=== PATIENT | male | born 1950 | race Caucasian/White ===

== ENCOUNTER 2022-09-14 12:00 | Outpatient (OUT) | payer MEDICARE, SELFPAY | END 2022-09-14 12:01 | disposition home or self-care (01) | LOC: PST 09-17 19:23 | PROVIDERS: Visit Provider Surgery | DX: Z01.818 Encounter for other preprocedural examination (principal); R19.5 Other fecal abnormalities; Z86.010 Personal history of colon polyps ==

== ENCOUNTER 2022-09-22 06:50 | Day surgery (SDC) | payer MEDICARE, SELFPAY ==
--- NOTE | 2022-09-22 | OP_ITS ---
OPERATION DATE: ??09/22/2022 PREOPERATIVE DIAGNOSIS:? Positive Cologuard as well as personal history of colon polyps. POSTOPERATIVE DIAGNOSIS:? A 2 mm ascending colon polyp and a 4 mm descending colon polyp, as well as moderate descending and sigmoid diverticulosis. PROCEDURE:? Colonoscopy to cecum with cold forceps polypectomy x1 for ascending colon polyp and cold snare polypectomy x1 for descending colon polyp. SURGEON:? Jose Roberto Perez M.D. ANESTHESIA:? Monitored anesthesia care. ESTIMATED BLOOD LOSS:? Less than 1 mL. INDICATIONS AND CONSENT:? Patient is a 72-year-old male with a recent positive Cologuard, as well as a personal history of colon polyps.? Indications, risks, benefits, alternatives of proceeding with colonoscopy were explained extensively to the patient, including the risks of bleeding, colon perforation or anesthetic complications.? All of his questions were answered.? Informed consent was obtained.? His Plavix was held for the past five days. PROCEDURE:? Patient brought to the operating room, placed in the left lateral decubitus position.? Monitored anesthesia care was provided.? Rectal exam was performed which showed no masses or blood.? The scope was inserted into the anal canal.? Under direct visualization was advanced to the cecum where cecal markings were clearly identified.? Upon withdrawal of the scope, mucosal surfaces were carefully examined. ?Within the ascending colon, there was noted to be a 2 mm diminutive, erythematous polyp that was removed with cold biopsy forceps with good hemostasis.? Within the descending colon, there was noted to be a 4 mm sessile polyp that was removed with cold snare with good hemostasis.? There was moderate to severe descending and sigmoid diverticulosis without inflammatory changes or scarring.? The scope was retroflexed in the anal canal.? There was no significant hemorrhoidal disease.? There were some prominent rectal veins.? Scope was then withdrawn.? Patient tolerated procedure well, was sent to recovery room in good condition. f/u colonoscopy likely in 5 years. CC:? Patient?s family physician KELLI
[2022-09-22 07:07] VITALS: BP 133/80; PULSE 72; RESP 20; TEMP 36.2; O2SAT 95; BMI 33.4
[2022-09-22 07:13] LABS: Glucometer 111 mg/dL (74-106)
[2022-09-22] MEDS: LACTATED RINGER'S SOLUTION 1,000 ML 50 ML IV (07:18)
[2022-09-22 08:24] VITALS: BP 103/50; PULSE 64; RESP 12; TEMP 36.2; O2SAT 94
[2022-09-22 08:39] VITALS: BP 112/63; PULSE 73; RESP 16; O2SAT 97
[2022-09-22 08:54] VITALS: BP 120/67; PULSE 64; RESP 16; O2SAT 95
== END 2022-09-22 08:54 | disposition home or self-care (01) ==
PROVIDERS: Visit Provider Surgery
PROC: (CPT 45380; principal; 2022-09-22 07:55)
DX: D12.2 Benign neoplasm of ascending colon (principal); R19.5 Other fecal abnormalities; Z86.010 Personal history of colon polyps; K57.30 Diverticulosis of large intestine without perforation or abscess without bleeding; Z79.02 Long term (current) use of antithrombotics/antiplatelets; I25.10 Atherosclerotic heart disease of native coronary artery without angina pectoris; I48.91 Unspecified atrial fibrillation; E11.9 Type 2 diabetes mellitus without complications; G47.33 Obstructive sleep apnea (adult) (pediatric); K76.0 Fatty (change of) liver, not elsewhere classified; Z90.49 Acquired absence of other specified parts of digestive tract; Z95.5 Presence of coronary angioplasty implant and graft; Z79.82 Long term (current) use of aspirin; Z79.85 Long-term (current) use of injectable non-insulin antidiabetic drugs; Z87.891 Personal history of nicotine dependence
CPT/HCPCS: 45380; 45385; 36415; 82948; 88305; J2704

== ENCOUNTER 2023-11-18 08:14 | Outpatient (OUT) | payer MEDICARE, SELFPAY ==
--- NOTE | 2023-11-18 | MR_ITS ---
The [place] [id number] Patient Name: SERGIO ROJAS MRN: [id number] date: 1950 Sex: M Assigned Patient Location: MRI Current Patient Location: MRI Accession/Order Number: [id number] Exam Date: 11/18/2023 08:45 Report Date: 11/23/2023 13:00 At the request of: GITA ANTHONY Procedure: MR ankle LT wo con EXAM: MR ankle LT wo con HISTORY: LEFT ANKLE PAIN. COMPARISON: None. TECHNIQUE: MRI images obtained with multiple sequences. MRI of the left ankle without contrast. Sequences obtained by standard department protocol. FINDINGS: Distal Achilles tendinosis and intrasubstance partial-thickness tearing. No full-thickness tear of the Achilles tendon. Plantar fascia is intact. Deltoid ligament is intact. Anterior and posterior syndesmotic ligaments are intact. Anterior talofibular, posterior talofibular, and calcaneofibular ligaments are intact. No abnormal signal of the plantar musculature. Extensor, flexor, and peroneal tendons are intact. No acute fractures. No significant joint degeneration. MR/MR ankle LT wo con IMPRESSION: 1. 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 No full-thickness tear of the Achilles tendon. 2. No acute fracture. 3. No acute ligamentous abnormality. 4. Extensor, flexor, and peroneal tendons are intact. Electronically authenticated by: EUGENIO BIRMINGHAM Date: 11/23/2023 13:00
== END 2023-11-18 08:15 | disposition home or self-care (01) ==
LOC: MRI 08:15
PROVIDERS: Visit Provider Internal Medicine
DX: M25.572 Pain in left ankle and joints of left foot (principal); M76.62 Achilles tendinitis, left leg
CPT/HCPCS: 73721

== ENCOUNTER 2023-12-06 06:37 | Outpatient (OUT) | payer MEDICARE, SELFPAY ==
--- NOTE | 2023-12-06 | XR_ITS ---
The [address] [address] Patient Name: SERGIO ROJAS MRN: [id number] date: 1950 Sex: M Assigned Patient Location: [facility] Current Patient Location: Accession/Order Number: [id number] Exam Date: 12/06/2023 07:44 Report Date: 12/07/2023 06:07 At the request of: KVNG DAVENPORT Procedure: XR ankle LT min 3V PROCEDURE: XR ankle LT min 3V HISTORY: LEFT ANKLE PAIN ; posterior ankle pain; injured several months ago COMPARISON: None. FINDINGS: BONES:Small degenerative disease at 5 at the Achilles tendon insertion and the plantar aponeurosis insertion into the calcaneus. Smooth articular surface and uniform spacing of the ankle joint. SOFT TISSUES:No visible soft tissue swelling. EFFUSION:None visible. OTHER: Negative. XR/XR ankle LT min 3V IMPRESSION: 1. Mild degenerative enthesopathic spurring of the calcaneus. 2. Normal appearance of the ankle joint. Electronically authenticated by: MARLI VALDERRAMA Date: 12/07/2023 06:07
--- OUTSIDE RECORDS SUMMARY | 2023-12-06 06:39 | XMS_ITS | CCD ---
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 Primary Care Unavailable VALENCIA Rich, DR MARCUS Attending Unavailable VALENCIA Rich, DR MARCUS Admitting Unavailable AV ANTHONY JR Primary Care Physician Sergio STEPHENSON Attending AV Sanchez Referring Unavailable Sergio STEPHENSON Attending Unavailable Sergio STEPHENSON Attending Unavailable Sergio STEPHENSON Attending Unavailable Allergies Allergy Classification Reported Allergen(s) Allergy Type Date of Onset Reaction(s) Facility (1 source) No Known Medication Allergies; Translations: [No Known Medication Allergies] Propensity to adverse reactions (disorder) [facility] Repository Medications Current Medications Medication Drug Class(es) Dates Sig (Normalized) Sig (Original) aspirin 81 mg delayed release oral tablet (2 sources) Platelet Aggregation Inhibitor, Nonsteroidal Anti-inflammatory Drug Start: 08-17-2022 take 1 tablet by mouth once daily aspirin 81 mg Oral EC Tab 81 mg = 1 tab(s), Oral, Daily, Refills(s) 0 Start Date: 08/17/22 Status: Ordered clopidogrel 75 mg oral tablet (2 sources) P2Y12 Platelet Inhibitor Start: 08-04-2022 take 1 tablet by mouth once daily Plavix 75 mg Tab 75 mg = 1 tab(s), Oral, Daily, Refills(s) 0 Start Date: 08/04/22 Status: Ordered 0.5 ML dulaglutide 9 MG/ML Auto-Injector [Trulicity] (2 sources) GLP-1 Receptor Agonist Start: 08-04-2022 inject 4.5 mg by subcutaneous injection every week Trulicity Pen 4.5 mg/0.5 mL subcutaneous solution 4.5 mg, SubCutaneous, qWeek, Refills(s) 0 Start Date: 08/04/22 Status: Ordered empagliflozin 25 mg oral tablet (2 sources) Sodium-Glucose Cotransporter 2 Inhibitor Start: 08-04-2022 take 1 tablet by mouth once daily in the morning Jardiance 25 mg oral tablet 25 mg = 1 tab(s), Oral, qAM, Refills(s) 0 Start Date: 08/04/22 Status: Ordered ezetimibe 10 mg oral tablet (2 sources) Dietary Cholesterol Absorption Inhibitor Start: 08-04-2022 take 5 mg by mouth once daily Zetia 10 mg Tab 5 mg = 0.5 tab(s), Oral, Daily, Refills(s) 0 Start Date: 08/04/22 Status: Ordered famotidine 40 mg oral tablet (2 sources) Histamine-2 Receptor Antagonist Start: 08-04-2022 take 1 tablet by mouth once daily at bedtime famotidine 40 mg Tab 40 mg = 1 tab(s), Oral, Once a day (at bedtime), Refills(s) 0 Start Date: 08/04/22 Status: Ordered hydroxychloroquine sulfate 200 mg oral tablet (2 sources) Antimalarial, Antirheumatic Agent Start: 08-04-2022 take 200 mg by mouth twice daily Plaquenil 200 mg, Oral, BID, Refills(s) 0 Start Date: 08/04/22 Status: Ordered rosuvastatin calcium 20 mg oral tablet (2 sources) HMG-CoA Reductase Inhibitor Start: 08-04-2022 take 1 tablet by mouth once daily at bedtime rosuvastatin 20 mg Tab 20 mg = 1 tab(s), Oral, Once a day (at bedtime), Refills(s) 0 Start Date: 08/04/22 Status: Ordered zolpidem tartrate 5 mg oral tablet (2 sources) gamma-Aminobutyric Acid-ergic Agonist Start: 08-04-2022 take 1 tablet by mouth once daily at bedtime Ambien 5 mg Tab 5 mg = 1 tab(s), Oral, Once a day (at bedtime), Refills(s) 0 Start Date: 08/04/22 Status: Ordered Problems Problem Classification Problem Date Documented Da te Episodic/Chronic Cardiac dysrhythmias (2 sources) Atrial fibrillation 08-04-2022 Chronic Coronary atherosclerosis and other heart disease (2 sources) Coronary arteriosclerosis 08-04-2022 Chronic Diabetes mellitus without complication (2 sources) Diabetes mellitus 08-04-2022 Chronic E Codes: Cut/pierceb (1 source) Contact with workbench tool, initial encounter; Translations: [CONTACT W/WORKBENCH TOOL INIT ENC] Onset: 3 Episodic Open wounds of extremities (4 sources) Laceration without foreign body of right index finger without damage to nail, initial encounter; Translations: [LAC W/O FB RT IF W/O DMG NAIL INIT] Onset: 3 Episodic Other aftercare (1 source) longterm (current) use of aspirin; Translations: [MCFP CURRENT USE OF ASPIRIN] Onset: 3 Episodic Other aftercare (1 source) Other longterm (current) drug therapy; Translations: [OTH HVAC/R SERVICE TECHNICIAN CURRENT DRUG THERAPY] Onset: 3 Episodic Other aftercare (1 source) longterm (current) use of antithrombotics/antipl atelets; Translations: [MCFP ANTITHROMBOT/ANTIPLATL ETS] Onset: 3 Episodic Other and unspecified benign neoplasm (5 sources) History of polyp of colon; Translations: [Personal history of colonic polyps] Onset: 3 Episodic Other and unspecified benign neoplasm (2 sources) Benign neoplasm of descending colon; Translations: [Benign neoplasm of descending colon] Onset: 3 Episodic Other and unspecified benign neoplasm (2 sources) Benign neoplasm of ascending colon; Translations: [Benign neoplasm of ascending colon] Onset: 3 Episodic Other gastrointestinal disorders (1 source) Abnormal feces; Translations: [Other fecal abnormalities] Onset: 3 Episodic Other nutritional; endocrine; and metabolic disorders (1 source) Obese class I; Translations: [Body mass index (BMI) 34.0-34.9, adult] Onset: 3 Chronic Other nutritional; endocrine; and metabolic disorders (2 sources) Body mass index 30+ - obesity 08-17-2022 Chronic Other nutritional; endocrine; and metabolic disorders (2 sources) Obesity 08-17-2022 Chronic Other screening for suspected conditions (not mental disorders or infectious disease) (4 sources) Stool DNA-based colorectal cancer screening positive; Translations: [Decreased testosterone level ] 08-04-2022 Episodic Residual codes; unclassified (2 sources) Obstructive sleep apnea syndrome 08-04-2022 Chronic Residual codes; unclassified (2 sources) Insomnia 08-04-2022 Episodic Screening and history of mental health and substance abuse codes (1 source) Personal history of nicotine dependence; Translations: [PERSONAL HISTORY OF NICOTINE DEPEND] Onset: 3 Episodic Unclassified (1 source) HVAC/R SERVICE TECHNICIAN INJECT NONINSULN ANTIDIAB; Translations: [MCFP INJECT NONINSULN ANTIDIAB] Onset: 3 Unclassified (2 sources) Non-alcoholic fatty liver disease 08-04-2022 Results Test Name Value Interpretation Reference Range Facility Ambulatory Visit Summaryon 0 10-13-2022 Ambulatory Visit Summary SERGIO ROJAS :1950 Visit Date:10/13/2022 Ambulatory Visit Instructions Your Diagnosis Benign neoplasm of ascending colon Benign neoplasm of descending colon Your Care Team Attending Physician - Sergio STEPHENSON MD Primary Care Physician - AV ANTHONY JR, DO This Is Your Medications List Contact prescribing physician if questions or concerns aspirin (aspirin 81 mg Oral EC Tab) clopidogrel (Plavix 75 mg Tab) dulaglutide (Trulicity Pen 4.5 mg/0.5 mL subcutaneous solution) empagliflozin (Jardiance 25 mg oral tablet) ezetimibe (Zetia 10 mg Tab) famotidine (famotidine 40 mg Tab) hydroxychloroquine (Plaquenil) rosuvastatin (rosuvastatin 20 mg Tab) zolpidem (Ambien 5 mg Tab) Procedures Performed Colonoscopy (09/22/2022), Colonoscopy (04/15/2011), Colonoscopy (2002), Cholecystectomy, History of cervical spine surgery, Placement of stent in cardiac conduit, TURP - Transurethral resection of prostate, Uvulopalatoplasty. Medications What How Much When Instructions Unchanged aspirin (aspirin 81 mg Oral EC Tab) 1 Tablets By Mouth Every day Contact prescribing physician if questions or concerns Unchanged clopidogrel (Plavix 75 mg Tab) 1 Tablets By Mouth Every day Contact prescribing physician if questions or concerns Unchanged dulaglutide (Trulicity Pen 4.5 mg/ 0.5 mL subcutaneous solution) 4.5 Milligram Subcutaneous Every week Contact prescribing physician if questions or concerns Unchanged empagliflozin (Jardiance 25 mg oral tablet) 1 Tablets By Mouth Once a day (in the morning) Contact prescribing physician if questions or concerns Unchanged ezetimibe (Zetia 10 mg Tab) 0.5 Tablets By Mouth Every day Contact prescribing physician if questions or concerns Unchanged famotidine (famotidine 40 mg Tab) 1 Tablets By Mouth Once a day (at bedtime) Contact prescribing physician if questions or concerns Unchanged hydroxychloroquine (Plaquenil) 200 Milligram By Mouth 2 times a day Contact prescribing physician if questions or concerns Unchanged rosuvastatin (rosuvastatin 20 mg Tab) 1 Tablets By Mouth Once a day (at bedtime) Contact prescribing physician if questions or concerns Unchanged zolpidem (Ambien 5 mg Tab) 1 Tablets By Mouth Once a day (at bedtime) Contact prescribing physician if questions or concerns Allergies No Known Allergies No Known Medication Allergies Problems Ongoing - Any problem that you are currently receiving treatment for. Atrial fibrillation Benign neoplasm of descending colon BMI 34.0-34.9,adult CAD (coronary artery disease) Diabetes History of colonic polyps Insomnia Low testosterone NAFLD (nonalcoholic fatty liver disease) Obesity MOE (obstructive sleep apnea) Personal history of colonic polyps Positive colorectal cancer screening using Cologuard test Tubular adenoma of colon [facility] Ambulatory Visit Summary SERGIO ROJAS :1950 Visit Date:10/13/2022 Ambulatory Visit Instructions Your Care Team Attending Physician - Sergio STEPHENSON MD Primary Care Physician - AV ANTHONY JR, DO This Is Your Medications List aspirin (aspirin 81 mg Oral EC Tab) clopidogrel (Plavix 75 mg Tab) dulaglutide (Trulicity Pen 4.5 mg/0.5 mL subcutaneous solution) empagliflozin (Jardiance 25 mg oral tablet) ezetimibe (Zetia 10 mg Tab) famotidine (famotidine 40 mg Tab) hydroxychloroquine (Plaquenil) rosuvastatin (rosuvastatin 20 mg Tab) zolpidem (Ambien 5 mg Tab) Procedures Performed Colonoscopy (09/22/2022), Colonoscopy (04/15/2011), Colonoscopy (2002), Cholecystectomy, History of cervical spine surgery, Placement of stent in cardiac conduit, TURP - Transurethral resection of prostate, Uvulopalatoplasty. Medications What How Much When Instructions Unchanged aspirin (aspirin 81 mg Oral EC Tab) 1 Tablets By Mouth Every day Unchanged clopidogrel (Plavix 75 mg Tab) 1 Tablets By Mouth Every day Unchanged dulaglutide (Trulicity Pen 4.5 mg/ 0.5 mL subcutaneous solution) 4.5 Milligram Subcutaneous Every week Unchanged empagliflozin (Jardiance 25 mg oral tablet) 1 Tablets By Mouth Once a day (in the morning) Unchanged ezetimibe (Zetia 10 mg Tab) 0.5 Tablets By Mouth Every day Unchanged famotidine (famotidine 40 mg Tab) 1 Tablets By Mouth Once a day (at bedtime) Unchanged hydroxychloroquine (Plaquenil) 200 Milligram By Mouth 2 times a day Unchanged rosuvastatin (rosuvastatin 20 mg Tab) 1 Tablets By Mouth Once a day (at bedtime) Unchanged zolpidem (Ambien 5 mg Tab) 1 Tablets By Mouth Once a day (at bedtime) Allergies No Known Allergies No Known Medication Allergies Problems Ongoing - Any problem that you are currently receiving treatment for. Atrial fibrillation BMI 34.0-34.9,adult CAD (coronary artery disease) Diabetes History of colonic polyps Insomnia Low testosterone NAFLD (nonalcoholic fatty liver disease) Obesity MOE (obstructive sleep apnea) Personal history of colonic polyps Positive colorectal cancer screening using Cologuard test Normal [facility] Gen Surg Phone Visit- Telehe marbella 10-13-2022 Gen Surg Phone Visit- Telehealth Chief Complaint colonoscopy follow up HPI Staff 21 day post operative follow up post colonoscopy with ascending polypectomies. History of Present Illness s/p colonoscopy with polypectomy x2 for small tubular adenomas in ascending and descending colon; doing well, denies abd pain or blood in stools. Review of Systems ROS - Provider Constitutional: no fever, no sweats, no weight loss. Eyes: no glasses, no blurred vision, no visual loss. ENMT: no dentures, no hoarseness, no swallowing difficulties, no hearing loss, no ear infection(s), no nose bleeds. Cardiovascular: normal blood pressure, no chest pain, regular heartbeat, no heart murmur. Respiratory: no shortness of breath, no cough, no asthma, no wheezing. Gastrointestinal: no nausea, no vomiting, no diarrhea, no constipation, no blood in stool, no change in bowel habits, no abdominal pain, no hepatitis. Genitourinary: no kidney stones, no urine infection, no dysuria. Musculoskeletal: no pain, no weakness. Skin: no changing moles, no rash, no skin lumps. Neurologic: no seizures, no epilepsy, no headache. Psychiatric: no emotional or psychiatric problem. Heme/Lymph: no bleeding problems, no anemia, no blood clots, no transfusions. Allergy/Immunologic: no swollen lymph nodes/glands, no IV drug abuse. Other: Additional ROS info: Except as noted in the above Review of Systems and in the History of Present Illness, all other systems have been reviewed and are negative or noncontributory. Assessment/Plan 1. Benign neoplasm of ascending colon (D12.2: Benign neoplasm of ascending colon) plan surveillance colonoscopy in 5 years, call sooner if problems/questions. 2. Benign neoplasm of descending colon (D12.4: Benign neoplasm of descending colon) see # 1 Follow-up No qualifying data available Problem List/Past Medical History Ongoing Atrial fibrillation Benign neoplasm of descending colon BMI 34.0-34.9,adult CAD (coronary artery disease) Diabetes History of colonic polyps Insomnia Low testosterone NAFLD (nonalcoholic fatty liver disease) Obesity MOE (obstructive sleep apnea) Personal history of colonic polyps Positive colorectal cancer screening using Cologuard test Tubular adenoma of colon Historical No qualifying data Procedure/Surgical History Colonoscopy (09/22/2022), Colonoscopy (04/15/2011), Colonoscopy (2002), Cholecystectomy, History of cervical spine surgery, Placement of stent in cardiac conduit, TURP - Transurethral resection of prostate, Uvulopalatoplasty. Medications Ambien 5 mg Tab, 5 mg= 1 tab(s), Oral, Once a day (at bedtime) aspirin 81 mg Oral EC Tab, 81 mg= 1 tab(s), Oral, Daily famotidine 40 mg Tab, 40 mg= 1 tab(s), Oral, Once a day (at bedtime) Jardiance 25 mg oral tablet, 25 mg= 1 tab(s), Oral, qAM Plaquenil, 200 mg, Oral, BID Plavix 75 mg Tab, 75 mg= 1 tab(s), Oral, Daily rosuvastatin 20 mg Tab, 20 mg= 1 tab(s), Oral, Once a day (at bedtime) Trulicity Pen 4.5 mg/0.5 mL subcutaneous solution, 4.5 mg, SubCutaneous, qWeek Zetia 10 mg Tab, 5 mg= 0.5 tab(s), Oral, Daily Allergies No Known Allergies No Known Medication Allergies Social History Alcohol - Denies Alcohol Use, 08/17/2022 Substance Abuse - Denies Substance Abuse, 08/17/2022 Tobacco Former smoker, quit more than 30 days ago Tobacco Use:. Never Smokeless Tobacco Use:. Cigarettes, 1 per day. Started age 15.0 Years. Stopped age 45 Years., 08/17/2022 Family History Acute myocardial infarction: Father. Dementia: Mother. Esophageal cancer: Brother. Immunizations Vaccine Date Status SARS-CoV-2 (COVID-19) mRNA-1273 vaccine 10/08/2021 Recorded SARS-CoV-2 (COVID-19) mRNA-1273 vaccine 12/28/2020 Recorded SARS-CoV-2 (COVID-19) mRNA-1273 vaccine 05/21/2020 Recorded SARS-CoV-2 (COVID-19) mRNA-1273 vaccine 04/24/2020 Recorded Normal [facility] Comment on above: Result Comment: Elec tronically Signed By: SACHIN REGAN, Sergio Seymour\Date and Time Signed: 10/13/22 14:55 EDT Reminderson 10-13-2022 Reminders - From: Aparna Mcgee LPN To: N - Clinical; Sent: 10/13/2022 14:52:17 EDT Show up: 08/24/2027 07:00:00 EDT Subject: colonoscopy recall Due Date/Time: 09/23/2027 07:00:00 EDT Reminder/Recall Patient due for surveillance colonoscopy 09/23/2027. Normal [facility] Pathology Noteon 09-28-2022 Pathology Note [id number] D:127 Normal [facility] Outside Colonoscopyon 2022 Outside Colonoscopy [id number] D:127 [facility] Lab Reportson 09-22-2022 Lab Reports [id number]#1.00C D:127 [facility] Pre-Certification Formon Pre-Certification Form [id number] :127 [facility] Consent for Procedure/Surger yon 08-18-2022 Consent for Procedure/Surgery [id number] D:127 [facility] Ambulatory Visit Summaryon 0 08-17-2022 Ambulatory Visit Summary SERGIO ROJAS :1950 Visit Date:08/17/2022 Ambulatory Visit Instructions Your Diagnosis Positive colorectal cancer screening using Cologuard test Personal history of colonic polyps BMI 34.0-34.9,adult Your Care Team Attending Physician - SACHIN REGAN, Sergio Perry Primary Care Physician - AV ANTHONY JR, DO This Is Your Medications List Contact prescribing physician if questions or concerns aspirin (aspirin 81 mg Oral EC Tab) clopidogrel (Plavix 75 mg Tab) dulaglutide (Trulicity Pen 4.5 mg/0.5 mL subcutaneous solution) empagliflozin (Jardiance 25 mg oral tablet) ezetimibe (Zetia 10 mg Tab) famotidine (famotidine 40 mg Tab) hydroxychloroquine (Plaquenil) rosuvastatin (rosuvastatin 20 mg Tab) zolpidem (Ambien 5 mg Tab) Procedures Performed Colonoscopy (04/15/2011), Colonoscopy (2002), Cholecystectomy, History of cervical spine surgery, Placement of stent in cardiac conduit, TURP - Transurethral resection of prostate, Uvulopalatoplasty. Discharge Vitals Heart Rate (Peripheral) 70 Respiratory Rate 16 Blood Pressure 130/90 Height 175.2 cm Height 69 in Weight 105.6 kg Weight 232.32 lb BMI 34.4 Medications What How Much When Instructions Unchanged aspirin (aspirin 81 mg Oral EC Tab) 1 Tablets By Mouth Every day Contact prescribing physician if questions or concerns Unchanged clopidogrel (Plavix 75 mg Tab) 1 Tablets By Mouth Every day Contact prescribing physician if questions or concerns Unchanged dulaglutide (Trulicity Pen 4.5 mg/ 0.5 mL subcutaneous solution) 4.5 Milligram Subcutaneous Every week Contact prescribing physician if questions or concerns Unchanged empagliflozin (Jardiance 25 mg oral tablet) 1 Tablets By Mouth Once a day (in the morning) Contact prescribing physician if questions or concerns Unchanged ezetimibe (Zetia 10 mg Tab) 0.5 Tablets By Mouth Every day Contact prescribing physician if questions or concerns Unchanged famotidine (famotidine 40 mg Tab) 1 Tablets By Mouth Once a day (at bedtime) Contact prescribing physician if questions or concerns Unchanged hydroxychloroquine (Plaquenil) 200 Milligram By Mouth 2 times a day Contact prescribing physician if questions or concerns Unchanged rosuvastatin (rosuvastatin 20 mg Tab) 1 Tablets By Mouth Once a day (at bedtime) Contact prescribing physician if questions or concerns Unchanged zolpidem (Ambien 5 mg Tab) 1 Tablets By Mouth Once a day (at bedtime) Contact prescribing physician if questions or concerns Allergies No Known Allergies No Known Medication Allergies Problems Ongoing - Any problem that you are currently receiving treatment for. Atrial fibrillation BMI 34.0-34.9,adult CAD (coronary artery disease) Diabetes History of colonic polyps Insomnia Low testosterone NAFLD (nonalcoholic fatty liver disease) Obesity MOE (obstructive sleep apnea) Personal history of colonic polyps Positive colorectal cancer screening using Cologuard test Normal [facility] Physician Referralon 023 Physician Referral [id number] D:127 Normal [facility] Basic Metabolic Panelon 09-28 Calcium mass conc 8.1 mg/dL Low 8.4-10.2 [facility] Comment on above: Performed By: #### C BCWOD, PT, PTT, EDCTNI, CHEM8, LIPASE, CMETADD ####Unless otherwise noted, all testing performed by [place] [address] [address], [place] [id number]: [id number] Director: Christ Farris M.D. Chloride molar conc 109 mmol/L High 98-108 [facility] Comment on above: Performed By: #### C BCWOD, PT, PTT, EDCTNI, CHEM8, LIPASE, CMETADD ####Unless otherwise noted, all testing performed by [address] [phone]: [id number] Director: Christ Farris M.D. CO2 molar conc 25 mmol/L Normal 21-32 [facility] Comment on above: Performed By: #### C BCWOD, PT, PTT, EDCTNI, CHEM8, LIPASE, CMETADD ####Unless otherwise noted, all testing performed by [address] [phone]: [id number] Director: Christ Farris M.D. Creatinine mass conc 0.81 mg/dL Normal 0.80-1.30 [facility] Comment on above: Performed By: #### C BCWOD, PT, PTT, EDCTNI, CHEM8, LIPASE, CMETADD ####Unless otherwise noted, all testing performed by [address] [phone]: [id number] Director: Christ Farris M.D. GFR/1.73 sq M predicted among blacks MDRD vol rate/area (S/P/Bld) mL/min/{1.73_m2} Normal [facility] Comment on above: Result Comment: Afri can Colombian GFR Calc Performed By: #### C BCWOD, PT, PTT, EDCTNI, CHEM8, LIPASE, CMETADD ####Unless otherwise noted, all testing performed by [address] [phone]: [id number] Director: Christ Farris M.D. GFR/1.73 sq M predicted among non-blacks MDRD vol rate/area (S/P/Bld) mL/min/{1.73_m2} Normal [facility] Comment on above: Result Comment: Non- GFR CalceGFR is an estimated Glomerular Filtration Rate based on the valueof the patient's serum creatinine. In outpatients, eGFR should be usedas a helpful tool in screening for CKD. In inpatients or patients withacute renal failure, eGFR represents the GFR at the moment of the drawand should be used with caution. Performed By: #### C BCWOD, PT, PTT, EDCTNI, CHEM8, LIPASE, CMETADD ####Unless otherwise noted, all testing performed by [address] [phone]: [id number] Director: Christ Farris M.D. Glucose mass conc 137 mg/dL High 70-99 [facility] Comment on above: Result Comment: This test result might be falsely depressed or falsely elevated onsamples drawn from patients taking Sulfasalazine and Sulfapyridine.Venipuncture should occur prior to taking either of these drugs. Performed By: #### C BCWOD, PT, PTT, EDCTNI, CHEM8, LIPASE, CMETADD ####Unless otherwise noted, all testing performed by [address] [phone]: [id number] Director: Christ Farris M.D. Potassium molar conc 4.1 mmol/L Normal 3.5-5.1 [facility] Comment on above: Performed By: #### C BCWOD, PT, PTT, EDCTNI, CHEM8, LIPASE, CMETADD ####Unless otherwise noted, all testing performed by [address] [phone]: [id number] Director: Christ Farris M.D. Sodium molar conc 140 mmol/L Normal 135-145 [facility] Comment on above: Performed By: #### C BCWOD, PT, PTT, EDCTNI, CHEM8, LIPASE, CMETADD ####Unless otherwise noted, all testing performed by [address] [phone]: [id number] Director: Christ Farris M.D. Urea nitrogen mass conc 14 mg/dL Normal 8-25 [facility] Comment on above: Performed By: #### C BCWOD, PT, PTT, EDCTNI, CHEM8, LIPASE, CMETADD ####Unless otherwise noted, all testing performed by [address] [phone]: [id number] Director: Christ Farris M.D. CBC with Diffon 10-10-2017 Basophils Auto #/vol (Bld) 0.0 K/mcL Normal 0-0.2 [facility] Comment on above: Performed By: #### C BCWOD, PT, PTT, EDCTNI, CHEM8, LIPASE, CMETADD ####Unless otherwise noted, all testing performed by [address] [phone]: [id number] Director: Christ Farris M.D. Basophils/100 WBC Auto (Bld) 0.4 % Normal [facility] Comment on above: Performed By: #### C BCWOD, PT, PTT, EDCTNI, CHEM8, LIPASE, CMETADD ####Unless otherwise noted, all testing performed by [address], [place] [phone]: [id number] Director: Christ Farris M.D. Eosinophils Auto #/vol (Bld) 0.1 K/mcL Normal 0-0.5 [facility] Comment on above: Performed By: #### C BCWOD, PT, PTT, EDCTNI, CHEM8, LIPASE, CMETADD ####Unless otherwise noted, all testing performed by [address] [phone]: [id number] Director: Christ Farris M.D. Eosinophils/100 WBC Auto (Bld) 0.8 % Normal [facility] Comment on above: Performed By: #### C BCWOD, PT, PTT, EDCTNI, CHEM8, LIPASE, CMETADD ####Unless otherwise noted, all testing performed by [address] [phone]: [id number] Director: Christ Farris M.D. Erythrocyte distribution width Auto Ratio (RBC) 15.2 % High 10-14.3 [facility] Comment on above: Performed By: #### C BCWOD, PT, PTT, EDCTNI, CHEM8, LIPASE, CMETADD ####Unless otherwise noted, all testing performed by [address] [phone]: [id number] Director: Christ Farris M.D. Hematocrit Auto Volume Fraction (Bld) 37.9 % Normal 37.9-49.2 [facility] Comment on above: Performed By: #### C BCWOD, PT, PTT, EDCTNI, CHEM8, LIPASE, CMETADD ####Unless otherwise noted, all testing performed by [address] [phone]: [id number] Director: Christ Farris M.D. Hemoglobin mass conc (Bld) 12.7 g/dL Low 12.9-16.9 [facility] Comment on above: Performed By: #### C BCWOD, PT, PTT, EDCTNI, CHEM8, LIPASE, CMETADD ####Unless otherwise noted, all testing performed by [address] [phone]: [id number] Director: Christ Farris M.D. Lymphocytes Auto #/vol (Bld) 1.6 K/mcL Normal 0.9-3.6 [facility] Comment on above: Performed By: #### C BCWOD, PT, PTT, EDCTNI, CHEM8, LIPASE, CMETADD ####Unless otherwise noted, all testing performed by [address] [phone]: [id number] Director: Christ Farris M.D. Lymphocytes/100 WBC Auto (Bld) 12.8 % Normal [facility] Comment on above: Performed By: #### C BCWOD, PT, PTT, EDCTNI, CHEM8, LIPASE, CMETADD ####Unless otherwise noted, all testing performed by [address] [phone]: [id number] Director: Christ Farris M.D. MCH Auto Entitic mass (RBC) 26.1 pg Low 27.7-34.6 [facility] Comment on above: Performed By: #### C BCWOD, PT, PTT, EDCTNI, CHEM8, LIPASE, CMETADD ####Unless otherwise noted, all testing performed by [address] [phone]: [id number] Director: Christ Farris M.D. [facility] mass conc (RBC) 33.5 g/dL Normal 32.9-35.5 [facility] Comment on above: Performed By: #### C BCWOD, PT, PTT, EDCTNI, CHEM8, LIPASE, CMETADD ####Unless otherwise noted, all testing performed by [address] [phone]: [id number] Director: Christ Farris M.D. MCV Auto Entitic volume (RBC) 77.9 fL Low 82.8-99.3 [facility] Comment on above: Performed By: #### C BCWOD, PT, PTT, EDCTNI, CHEM8, LIPASE, CMETADD ####Unless otherwise noted, all testing performed by [address] [phone]: [id number] Director: Christ Farris M.D. Monocytes Auto #/vol (Bld) 1.1 K/mcL High 0.2-0.6 [facility] Comment on above: Performed By: #### C BCWOD, PT, PTT, EDCTNI, CHEM8, LIPASE, CMETADD ####Unless otherwise noted, all testing performed by [address] [phone]: [id number] Director: Christ Farris M.D. Monocytes/100 WBC Auto (Bld) 8.8 % Normal [facility] Comment on above: Performed By: #### C BCWOD, PT, PTT, EDCTNI, CHEM8, LIPASE, CMETADD ####Unless otherwise noted, all testing performed by [address] [phone]: [id number] Director: Christ Farris M.D. Neutrophils Auto #/vol (Bld) 9.6 K/mcL High 1.4-6.8 [facility] Comment on above: Performed By: #### C BCWOD, PT, PTT, EDCTNI, CHEM8, LIPASE, CMETADD ####Unless otherwise noted, all testing performed by [address] [phone]: [id number] Director: Christ Farris M.D. Platelet mean volume Auto Entitic volume (Bld) 8.1 fL Normal 6.6-10.8 [facility] Comment on above: Performed By: #### C BCWOD, PT, PTT, EDCTNI, CHEM8, LIPASE, CMETADD ####Unless otherwise noted, all testing performed by [address] [phone]: [id number] Director: Christ Farris M.D. Platelets Auto #/vol (Bld) 280 K/mcL Normal 139-354 [facility] Comment on above: Performed By: #### C BCWOD, PT, PTT, EDCTNI, CHEM8, LIPASE, CMETADD ####Unless otherwise noted, all testing performed by [address] [phone]: [id number] Director: Christ Farris M.D. RBC Auto #/vol (Bld) 4.87 M/mcL Normal 4.0-5.5 [facility] Comment on above: Performed By: #### C BCWOD, PT, PTT, EDCTNI, CHEM8, LIPASE, CMETADD ####Unless otherwise noted, all testing performed by [address] [phone]: [id number] Director: Christ Farris M.D. Segmented Neut % 77.2 % Normal [facility] Comment on above: Performed By: #### C BCWOD, PT, PTT, EDCTNI, CHEM8, LIPASE, CMETADD ####Unless otherwise noted, all testing performed by [place] [phone]: [id number] Director: Christ Farris M.D. WBC Auto #/vol (Bld) 12.4 K/mcL High 3.6-10.4 [facility] Comment on above: Performed By: #### C BCWOD, PT, PTT, EDCTNI, CHEM8, LIPASE, CMETADD ####Unless otherwise noted, all testing performed by [address] [phone]: [id number] Director: Christ Farris M.D. Cardiac Troponin-Ion 018 Troponin I.cardiac mass conc No Biomarker evidence of myocardial injury within the past 14 hours. Normal [facility] Comment on above: Performed By: #### C BCWOD, PT, PTT, EDCTNI, CHEM8, LIPASE, CMETADD ####Unless otherwise noted, all testing performed by [address] [phone]: [id number] Director: Christ Farris M.D. Troponin I.cardiac mass conc ng/mL Normal < 45.0 [facility] Comment on above: Result Comment: Elev ation of troponin indicates some degree of myocardial necrosis butunless there is a significant rise and/or fall (if elevated) identified,it unlikely that an acute event has taken placeSamples from patients routinely receiving high dose biotin therapy(100-300 mg/day) may show falsely decreased results. Please correlateclinically. Performed By: #### C BCWOD, PT, PTT, EDCTNI, CHEM8, LIPASE, CMETADD ####Unless otherwise noted, all testing performed by [address] [phone]: [id number] Director: Christ Farris M.D. Glucose, POCon 10-10-2017 Glucose mass conc 99 mg/dL Normal 80-115 [facility] Comment on above: Performed By: #### C BCWOD, PT, PTT, EDCTNI, CHEM8, LIPASE, CMETADD ####Unless otherwise noted, all testing performed by [address] [phone]: [id number] Director: Christ Farris M.D. Glucose mass conc 104 mg/dL Normal 80-115 [facility] Comment on above: Performed By: #### C BCWOD, PT, PTT, EDCTNI, CHEM8, LIPASE, CMETADD ####Unless otherwise noted, all testing performed by [address] [phone]: [id number] Director: Christ Farris M.D. Magnesiumon 10-10-2017 Magnesium mass conc 1.8 mg/dL Normal 1.6-2.4 [facility] Comment on above: Performed By: #### C BCWOD, PT, PTT, EDCTNI, CHEM8, LIPASE, CMETADD ####Unless otherwise noted, all testing performed by [address] [phone]: [id number] Director: Christ Farris M.D. Basic Metabolic Panelon 09-28 Calcium mass conc 8.5 mg/dL Normal 8.4-10.2 [facility] Comment on above: Performed By: #### C BCWOD, PT, PTT, EDCTNI, CHEM8, LIPASE, CMETADD ####Unless otherwise noted, all testing performed by [address] [phone]: [id number] Director: Christ Farris M.D. Chloride molar conc 105 mmol/L Normal 98-108 [facility] Comment on above: Performed By: #### C BCWOD, PT, PTT, EDCTNI, CHEM8, LIPASE, CMETADD ####Unless otherwise noted, all testing performed by [address] [phone]: [id number] Director: Christ Farris M.D. CO2 molar conc 27 mmol/L Normal 21-32 [facility] Comment on above: Performed By: #### C BCWOD, PT, PTT, EDCTNI, CHEM8, LIPASE, CMETADD ####Unless otherwise noted, all testing performed by [address] [phone]: [id number] Director: Christ Farris M.D. Creatinine mass conc 1.04 mg/dL Normal 0.80-1.30 [facility] Comment on above: Performed By: #### C BCWOD, PT, PTT, EDCTNI, CHEM8, LIPASE, CMETADD ####Unless otherwise noted, all testing performed by [address] [phone]: [id number] Director: Christ Farris M.D. GFR/1.73 sq M predicted among blacks MDRD vol rate/area (S/P/Bld) mL/min/{1.73_m2} Normal [facility] Comment on above: Result Comment: Afri can Colombian GFR Calc Performed By: #### C BCWOD, PT, PTT, EDCTNI, CHEM8, LIPASE, CMETADD ####Unless otherwise noted, all testing performed by [address] [phone]: [id number] Director: Christ Farris M.D. GFR/1.73 sq M predicted among non-blacks MDRD vol rate/area (S/P/Bld) mL/min/{1.73_m2} Normal [facility] Comment on above: Result Comment: Non- GFR CalceGFR is an estimated Glomerular Filtration Rate based on the valueof the patient's serum creatinine. In outpatients, eGFR should be usedas a helpful tool in screening for CKD. In inpatients or patients withacute renal failure, eGFR represents the GFR at the moment of the drawand should be used with caution. Performed By: #### C BCWOD, PT, PTT, EDCTNI, CHEM8, LIPASE, CMETADD ####Unless otherwise noted, all testing performed by [address] [phone]: [id number] Director: Christ Farris M.D. Glucose mass conc 172 mg/dL High 70-99 [facility] Comment on above: Result Comment: This test result might be falsely depressed or falsely elevated onsamples drawn from patients taking Sulfasalazine and Sulfapyridine.Venipuncture should occur prior to taking either of these drugs. Performed By: #### C BCWOD, PT, PTT, EDCTNI, CHEM8, LIPASE, CMETADD ####Unless otherwise noted, all testing performed by [address] [phone]: [id number] Director: Christ Farris M.D. Potassium molar conc 3.8 mmol/L Normal 3.5-5.1 [facility] Comment on above: Performed By: #### C BCWOD, PT, PTT, EDCTNI, CHEM8, LIPASE, CMETADD ####Unless otherwise noted, all testing performed by [address] [phone]: [id number] Director: Christ Farris M.D. Sodium molar conc 140 mmol/L Normal 135-145 [facility] Comment on above: Performed By: #### C BCWOD, PT, PTT, EDCTNI, CHEM8, LIPASE, CMETADD ####Unless otherwise noted, all testing performed by [address] [phone]: [id number] Director: Christ Farris M.D. Urea nitrogen mass conc 11 mg/dL Normal 8-25 [facility] Comment on above: Performed By: #### C BCWOD, PT, PTT, EDCTNI, CHEM8, LIPASE, CMETADD ####Unless otherwise noted, all testing performed by [address] [phone]: [id number] Director: Christ Farris M.D. CBC w/o Diffon 10-09-2017 Erythrocyte distribution width Auto Ratio (RBC) 15.2 % High 10-14.3 [facility] Comment on above: Performed By: #### C BCWOD, PT, PTT, EDCTNI, CHEM8, LIPASE, CMETADD ####Unless otherwise noted, all testing performed by [address] [phone]: [id number] Director: Christ Farris M.D. Hematocrit Auto Volume Fraction (Bld) 42.6 % Normal 37.9-49.2 [facility] Comment on above: Performed By: #### C BCWOD, PT, PTT, EDCTNI, CHEM8, LIPASE, CMETADD ####Unless otherwise noted, all testing performed by [address] [phone]: [id number] Director: Christ Farris M.D. Hemoglobin mass conc (Bld) 14.1 g/dL Normal 12.9-16.9 [facility] Comment on above: Performed By: #### C BCWOD, PT, PTT, EDCTNI, CHEM8, LIPASE, CMETADD ####Unless otherwise noted, all testing performed by [address] [phone]: [id number] Director: Christ Farris M.D. MCH Auto Entitic mass (RBC) 25.8 pg Low 27.7-34.6 [facility] Comment on above: Performed By: #### C BCWOD, PT, PTT, EDCTNI, CHEM8, LIPASE, CMETADD ####Unless otherwise noted, all testing performed by [address] [phone]: [id number] Director: Christ Farris M.D. MCHC Auto mass conc (RBC) 33.1 g/dL Normal 32.9-35.5 [facility] Comment on above: Performed By: #### C BCWOD, PT, PTT, EDCTNI, CHEM8, LIPASE, CMETADD ####Unless otherwise noted, all testing performed by [address] [phone]: [id number] Director: Christ Farris M.D. MCV Auto Entitic volume (RBC) 77.9 fL Low 82.8-99.3 [facility] Comment on above: Performed By: #### C BCWOD, PT, PTT, EDCTNI, CHEM8, LIPASE, CMETADD ####Unless otherwise noted, all testing performed by [place] [phone]: [id number] Director: Christ Farris M.D. Platelet mean volume Auto Entitic volume (Bld) 7.7 fL Normal 6.6-10.8 [facility] Comment on above: Performed By: #### C BCWOD, PT, PTT, EDCTNI, CHEM8, LIPASE, CMETADD ####Unless otherwise noted, all testing performed by [address] [phone]: [id number] Director: Christ Farris M.D. Platelets Auto #/vol (Bld) 319 K/mcL Normal 139-354 [facility] Comment on above: Performed By: #### C BCWOD, PT, PTT, EDCTNI, CHEM8, LIPASE, CMETADD ####Unless otherwise noted, all testing performed by [place] [phone]: [id number] Director: Christ Farris M.D. RBC Auto #/vol (Bld) 5.48 M/mcL Normal 4.0-5.5 [facility] Comment on above: Performed By: #### C BCWOD, PT, PTT, EDCTNI, CHEM8, LIPASE, CMETADD ####Unless otherwise noted, all testing performed by [address] [phone]: [id number] Director: Christ Farris M.D. WBC Auto #/vol (Bld) 13.6 K/mcL High 3.6-10.4 [facility] Comment on above: Performed By: #### C BCWOD, PT, PTT, EDCTNI, CHEM8, LIPASE, CMETADD ####Unless otherwise noted, all testing performed by [address] [phone]: [id number] Director: Christ Farris M.D. CHEST (ONE VIEW ONLY)on 09-28 CHEST (ONE VIEW ONLY) Final ReportAccession No: [id number] Performed: Oct 09 2017 6:52PMExamination: CHEST (ONE VIEW ONLY)CHEST (ONE VIEW ONLY):HISTORY: Chest pain and shortness of breath.COMPARISON: None.FINDINGS: The cardiomediastinal silhouette appears normal. The lungs areclear.There is no pleural effusion or pneumothorax. There is a surgical plateandscrews in the cervical spine. Bones and soft tissues otherwise appearunremarkable.IMPR ESSION:No acute cardiopulmonary process.Interpreting Physician: MARLI BEE M.D.Trans: lwolfe : cc: Normal [facility] CMET Add-On Testson 10-10-19 18 Albumin mass conc 3.4 g/dL Normal 3.2-5.2 [facility] Comment on above: Performed By: #### C BCWOD, PT, PTT, EDCTNI, CHEM8, LIPASE, CMETADD ####Unless otherwise noted, all testing performed by [address] [phone]: [id number] Director: Christ Farris M.D. ALP enzyme act/vol 88 U/L Normal 40-150 [facility] Comment on above: Performed By: #### C BCWOD, PT, PTT, EDCTNI, CHEM8, LIPASE, CMETADD ####Unless otherwise noted, all testing performed by [address] [phone]: [id number] Director: Christ Farris M.D. ALT enzyme act/vol 26 U/L Normal 14-65 [facility] Comment on above: Result Comment: This test result might be falsely depressed or falsely elevated onsamples drawn from patients taking Sulfasalazine and Sulfapyridine.Venipuncture should occur prior to taking either of these drugs. Performed By: #### C BCWOD, PT, PTT, EDCTNI, CHEM8, LIPASE, CMETADD ####Unless otherwise noted, all testing performed by [address] [phone]: [id number] Director: Christ Farris M.D. AST enzyme act/vol 14 U/L Normal 0-45 [facility] Comment on above: Result Comment: This test result might be falsely depressed or falsely elevated onsamples drawn from patients taking Sulfasalazine and Sulfapyridine.Venipuncture should occur prior to taking either of these drugs. Performed By: #### C BCWOD, PT, PTT, EDCTNI, CHEM8, LIPASE, CMETADD ####Unless otherwise noted, all testing performed by [address] [phone]: [id number] Director: Christ Farris M.D. Bilirubin mass conc 0.4 mg/dL Normal 0.3-1.2 [facility] Comment on above: Performed By: #### C BCWOD, PT, PTT, EDCTNI, CHEM8, LIPASE, CMETADD ####Unless otherwise noted, all testing performed by [address] [phone]: [id number] Director: Christ Farris M.D. Protein mass conc 6.6 g/dL Normal 6.0-8.0 [facility] Comment on above: Performed By: #### C BCWOD, PT, PTT, EDCTNI, CHEM8, LIPASE, CMETADD ####Unless otherwise noted, all testing performed by [address] [phone]: [id number] Director: Christ Farris M.D. Cardiac Troponin-Ion 018 Troponin I.cardiac mass conc ng/mL Normal < 45.0 [facility] Comment on above: Result Comment: Elev ation of troponin indicates some degree of myocardial necrosis butunless there is a significant rise and/or fall (if elevated) identified,it unlikely that an acute event has taken placeSamples from patients routinely receiving high dose biotin therapy(100-300 mg/day) may show falsely decreased results. Please correlateclinically. Performed By: #### C TNI, LIPID ####Unless otherwise noted, all testing performed by [address] [phone]: [id number] Director: Christ Farris M.D. Troponin I.cardiac mass conc No Biomarker evidence of myocardial injury within the past 14 hours. Normal [facility] Comment on above: Performed By: #### C TNI, LIPID ####Unless otherwise noted, all testing performed by [address] [phone]: [id number] Director: Christ Farris M.D. ED Cardiac Troponin-Ion 09-28 Troponin I.cardiac mass conc ng/mL Normal < 45 [facility] Comment on above: Result Comment: Elev ation of troponin indicates some degree of myocardial necrosis butunless there is a significant rise and/or fall (if elevated) identified,it unlikely that an acute event has taken placeSamples from patients routinely receiving high dose biotin therapy(100-300 mg/day) may show falsely decreased results. Please correlateclinically. Performed By: #### C BCWOD, PT, PTT, EDCTNI, CHEM8, LIPASE, CMETADD ####Unless otherwise noted, all testing performed by [address] [phone]: [id number] Director: Christ Farris M.D. Lactic Acidon 10-09-2017 Lactate molar conc 1.8 mmol/L Normal 0.6-2.0 [facility] Comment on above: Performed By: #### L A ####Unless otherwise noted, all testing performed by [address] [phone]: [id number] Director: Christ Farris M.D. Lipaseon 10-09-2017 Lipase enzyme act/vol 160 U/L Normal 73-393 [facility] Comment on above: Performed By: #### C BCWOD, PT, PTT, EDCTNI, CHEM8, LIPASE, CMETADD ####Unless otherwise noted, all testing performed by [address] [phone]: [id number] Director: Christ Farris M.D. Lipid Panelon 10-09-2017 Cholesterol in HDL mass conc 43 mg/dL Normal 40-59 [facility] Comment on above: Performed By: #### C BCWOD, PT, PTT, EDCTNI, CHEM8, LIPASE, CMETADD ####Unless otherwise noted, all testing performed by [address] [phone]: [id number] Director: Christ Farris M.D. Cholesterol in LDL mass conc 64 mg/dL Normal 10-150 [facility] Comment on above: Performed By: #### C BCWOD, PT, PTT, EDCTNI, CHEM8, LIPASE, CMETADD ####Unless otherwise noted, all testing performed by [address] [phone]: [id number] Director: Christ Farris M.D. Cholesterol in VLDL mass conc 35 mg/dL Normal 5-40 [facility] Comment on above: Performed By: #### C BCWOD, PT, PTT, EDCTNI, CHEM8, LIPASE, CMETADD ####Unless otherwise noted, all testing performed by [address] [phone]: [id number] Director: Christ Farris M.D. Cholesterol mass conc 142 mg/dL Normal 100-199 [facility] Comment on above: Performed By: #### C BCWOD, PT, PTT, EDCTNI, CHEM8, LIPASE, CMETADD ####Unless otherwise noted, all testing performed by [address] [phone]: [id number] Director: Christ Farris M.D. Cholesterol.total/C holesterol in HDL mass ratio 3.3 {ratio} Normal 3.2-5.0 [facility] Comment on above: Result Comment: Male Coronary Heart Disease Risk Factor (CHDRF):Average risk= 5.01/2 Average risk= 3.42 times Average risk= 9.6 Performed By: #### C BCWOD, PT, PTT, EDCTNI, CHEM8, LIPASE, CMETADD ####Unless otherwise noted, all testing performed by [address] [phone]: [id number] Director: Christ Farris M.D. Triglyceride mass conc 174 mg/dL High 25-120 [facility] Comment on above: Performed By: #### C BCWOD, PT, PTT, EDCTNI, CHEM8, LIPASE, CMETADD ####Unless otherwise noted, all testing performed by [address] [phone]: [id number] Director: Christ Farris M.D. Partial Thromboplastin Timeo n 10-09-2017 aPTT Coag time (Bld) 24 s Normal 23.0-34.0 [facility] Comment on above: Result Comment: Suggabriel gorman therapeutic range for PTT is 68-104 sec. Performed By: #### C BCWOD, PT, PTT, EDCTNI, CHEM8, LIPASE, CMETADD ####Unless otherwise noted, all testing performed by [address] [phone]: [id number] Director: Christ Farris M.D. Protimejaimie 10-09-2017 INR Coag RelTime (PPP) 0.95 {INR} Normal [facility] Comment on above: Result Comment: The [employer] recommended therapeutic rangefor Warfarin (Coumadin) therapy goals:PROPHYLAXIS/TREATMENT of:INRVenous Thrombosis, Pulmonary Embolism2.0-3.0Prevention of VTE (Orthopedic Surgery)2.0-3.0Atrial Fibrillation2.0-3.0Myocardial Infarction2.0-3.0Mechanical Prosthetic Heart Valves (Aortic position)2.0-3.0Mechanical Prosthetic Heart Valves (Mitral Position)2.5-3.5American College of Chest Physicians evidence-based clinical practiceguidelines. CHEST. 2012 (9th ed) Performed By: #### C BCWOD, PT, PTT, EDCTNI, CHEM8, LIPASE, CMETADD ####Unless otherwise noted, all testing performed by [address] [phone]: [id number] Director: Christ Farris M.D. Prothrombin time (PT) Coag time (PPP) 12.4 s Normal 11.8-14.3 [facility] Comment on above: Performed By: #### C BCWOD, PT, PTT, EDCTNI, CHEM8, LIPASE, CMETADD ####Unless otherwise noted, all testing performed by [address] [phone]: [id number] Director: Christ Farris M.D. Vital Signs Date Time Vital Sign Value Performing Clinician Joe quinteros 08-17-2022 14:34-0400 Blood Pressure Location Sergio STEPHENSON [facility] 08-17-2022 14:34-0400 Diastolic blood pressure 90 mm[Hg] Sergio STEPHENSON [facility] [place] 08-17-2022 14:34-0400 Heart rate 70 /min Sergio NILL [facility] [place] 08-17-2022 14:34-0403 Respiratory rate 16 /min Sergio NILL [facility] [place] 08-17-2022 14:34-0400 Systolic blood pressure 130 mm[Hg] Sergio NILL [facility] [place] Encounters Encounter Date Encounter Type Care Provider Facility Start: 10-13-2022 End: 10-14-2022 ambulatory Sergio R NILL Facility: [place] Start: 10-13-2022 End: 10-13-2022 Patient encounter procedure Sergio R NILL [facility] [place] Start: 09-22-2022 End: 09-23-2022 ambulatory Sergio R NILL Facility:[facility]:[id number] Start: 08-17-2022 End: 08-18-2022 ambulatory Sergio R NILL Facility: [place] Start: 08-17-2022 End: 08-17-2022 Patient encounter procedure Sergio R NILL [facility] N[facility] [place] Start: 08-02-2022 ambulatory Sergio R NILL Facility : [facility] Start: 05-31-2022 End: 05-31-2022 ambulatory VIOLETA LOONEY Facility: Start: 04-17-2020 End: 04-17-2020 Orders Only Linh Oseguera Work Phone: [facility] Start: 10-26-2017 Patient encounter ALYSSA ANTOINE [facility] Ambulatory Start: 10-18-2017 Patient encounter Kimberlee Schmidt ity:[place] Start: 10-09-2017 End: 10-10-2017 Patient encounter Trisha Ridley Facility:[place] Procedures Date Procedure Procedure Detail Performing Clinician Start: 09-22-2022 Colonoscopy Sergio NI LL Start: 04-15-2011 Colonoscopy Sergio NI LL Start: 02-28-2002 Colonoscopy Sergio NI LL Cholecystectomy Sergio STEPHENSON History of surgical procedure on cervical spine Sergio SILVAL Placement of stent i n cardiac conduit Sergio SILVAL Transurethral prostatectomy Sergio SILVAL Uvulopalatoplasty Sergio NI LL Immunizations Immunization Date Immunization Notes Care Provider Fa cility 10-08-2021 SARS-CoV-2 (COVID-19 ) mRNA-1273 vaccine Sergio STEPHENSON [facility] [place] 12-28-2020 SARS-CoV-2 (COVID-19 ) mRNA-1273 vaccine Sergio SILVAL [facility] [place] 05-21-2020 SARS-CoV-2 (COVID-19 ) mRNA-1273 vaccine Sergio STEPHENSON [facility] [place] 04-24-2020 SARS-CoV-2 (COVID-19 ) mRNA-1273 vaccine Sergio STEPHENSON [facility] [place] Payers Date Payer Category Payer Private Health Insurance [id number] 2017 Medicare [employer] MANAGED [place] DICARE AETNA MEDICARE PLAN (PPO) [id number] 2017-Present [id number] 2017 Private Health Insurance [facility] [id number] 1959 Medicare [id number] 1950 Unknown [id number] 1950 Unknown [id number] 1950 Unknown [id number] 1950 Unknown [id number] 1950 Unknown [id number] Social History Date Type Detail [facility] [place] Sex Assigned At Not on file [facility] Start: 08-17-2022 Tobacco smoking status Ex-smoker (fi nding) [facility] Tobacco smoking status Never [facility] Sex Assigned At Male [facility] Functional Status Date Assessment Result Facility 08-17-2022 Functional Status N/A [facility] [place] Clinical Note 08-17-2022 Note Date & Type Note Facility 08-17-2022 Note Chief Complaint consultation for positive Cologuard HPI Staff 72 year old male presents on consultation from Dr. Anthony for positive Cologuard. Denies abdominal or rectal pain. No rectal bleeding or change in bowel habits. Denies nausea or vomiting. No unexplained weight loss. Patient on Plavix. Last colonoscopy completed 2011 with tubular adenoma x 3. Never had positive Cologuard in the past. No known family history of colon cancer. History of Present Illness 72 yo male with h/o CAD, atrial fibrillation, on Plavix, DMII, NAFLD, MOE, referred for positive Cologuard; denies change in bms or blood in stools, no abd complaints; abd operations significant for cholecystectomy; last colonoscopy 2011 with 3 small tubular adenomas removed; on Plavix and baby asa daily, no NSAIDs, no SBE prophylaxis; no fmhx of GI malignancy or IBD; no tobacco use. Review of Systems PHQ Score Initial Depression Screen Score: 0 ROS - Provider Constitutional: no fever, no sweats, no weight loss. Eyes: no glasses, no blurred vision, no visual loss. ENMT: no dentures, no hoarseness, no swallowing difficulties, no hearing loss, no ear infection(s), no nose bleeds. Cardiovascular: normal blood pressure, no chest pain, regular heartbeat, no heart murmur. Respiratory: no shortness of breath, no cough, no asthma, no wheezing. Gastrointestinal: no nausea, no vomiting, no diarrhea, no constipation, no blood in stool, no change in bowel habits, no abdominal pain, no hepatitis. Genitourinary: no kidney stones, no urine infection, no dysuria. Musculoskeletal: no pain, no weakness. Skin: no changing moles, no rash, no skin lumps. Neurologic: no seizures, no epilepsy, no headache. Psychiatric: no emotional or psychiatric problem. Heme/Lymph: no bleeding problems, no anemia, no blood clots, no transfusions. Allergy/Immunologic: no swollen lymph nodes/glands, no IV drug abuse. Other: Additional ROS info: Except as noted in the above Review of Systems and in the History of Present Illness, all other systems have been reviewed and are negative or noncontributory. Physical Exam Vitals & Measurements HR: 70(Peripheral) RR: 16 BP: 130/90 HT: 69 in HT: 175.2 cm WT: 105.6 kg WT: 232.32 lb BMI: 34.4 HEENT: normal conjunctiva, sclera clear, no scleral icterus, EOM intact, PERRLA, oral mucosa moist without lesions. Neck: trachea midline, no mass, symmetric, no thyromegaly or nodules, no adenopathy Respiratory: lungs CTA, respirations non labored. Cardiovascular: regular rate and rhythm, no murmur, no pedal edema or varicosities. Gastrointestinal: soft, non distended, no tenderness, no masses, no palpable hernias, diastasis recti no, no hepatosplenomegaly; normal bs Lymphatic: no cervical adenopathy, no supraclavicular adenopathy. Musculoskeletal: normal gait, digits and nails without infection, nodes, cyanosis, clubbing. Skin: no rashes, no lesions, no ulcers, no subcutaneous nodules, induration. Psychiatric/Neuro: review of old records completed, Discussed surgical options, risks, and possible complications with patient. Assessment/Plan 1. Positive colorectal cancer screening using Cologuard test (R19.5: Other fecal abnormalities) plan colonoscopy under anesthesia for further evaluation, informed consent obtained. 2. Personal history of colonic polyps (Z86.010: Personal history of colonic polyps) see # 1 3. BMI 34.0-34.9,adult (Z68.34: Body mass index [BMI] 34.0-34.9, adult) recommend diet and exercise. Follow-up No qualifying data available Problem List/Past Medical History Ongoing Atrial fibrillation BMI 34.0-34.9,adult CAD (coronary artery disease) Diabetes History of colonic polyps Insomnia Low testosterone NAFLD (nonalcoholic fatty liver disease) Obesity MOE (obstructive sleep apnea) Personal history of colonic polyps Positive colorectal cancer screening using Cologuard test Historical No qualifying data Procedure/Surgical History Colonoscopy (04/15/2011), Colonoscopy (2002), Cholecystectomy, History of cervical spine surgery, Placement of stent in cardiac conduit, TURP - Transurethral resection of prostate, Uvulopalatoplasty. Medications Ambien 5 mg Tab, 5 mg= 1 tab(s), Oral, Once a day (at bedtime) aspirin 81 mg Oral EC Tab, 81 mg= 1 tab(s), Oral, Daily famotidine 40 mg Tab, 40 mg= 1 tab(s), Oral, Once a day (at bedtime) Jardiance 25 mg oral tablet, 25 mg= 1 tab(s), Oral, qAM Plaquenil, 200 mg, Oral, BID Plavix 75 mg Tab, 75 mg= 1 tab(s), Oral, Daily rosuvastatin 20 mg Tab, 20 mg= 1 tab(s), Oral, Once a day (at bedtime) Trulicity Pen 4.5 mg/0.5 mL subcutaneous solution, 4.5 mg, SubCutaneous, qWeek Zetia 10 mg Tab, 5 mg= 0.5 tab(s), Oral, Daily Allergies No Known Allergies No Known Medication Allergies Social History Alcohol - Denies Alcohol Use, 08/17/2022 Substance Abuse - Denies Substance Abuse, 08/17/2022 Tobacco Former smoker, quit more than 30 days ago Tobacco Use:. Never Smokeless (more content not included)... [facility] Comment on above: Result Comment: Elec tronically Signed By: SACHIN REGAN, Sergio Seymour\Date and Time Signed: 08/17/22 15:09 EDT Evaluation + Plan note Note Date & Type Note Facility Evaluation + Plan note No data available for this section [facility] [place] [facility] Discharge instructions Note Date & Type Note Facility Hospital Discharge instructions No data available for this section [facility] [place] Progress note Note Date & Type Note Facility Progress note No data available for this section [facility] Summary Purpose Family History No Family History Records FoundNo Family History Records FoundNo Family History Records FoundNo Family History Records Found Advance Directives No Advanced Directives Records FoundNo Advanced Directives Records FoundNo Advanced Directives Records FoundNo Advanced Directives Records Found Additional Source Comments (unrecognized sect ion and content) No Status Records FoundNo Status Records FoundNo Status Records FoundNo Status Records Found INFORMATION SOURCE (unrecogn ized section and content) DATE CREATED AUTHOR 10/21/2017 [facility] DATE CREATED AUTHOR AUTHOR'S ORGANIZ ATION 10/29/2017 [facility] DATE CREATED AUTHOR AUTHOR'S ORGANIZ ATION 06/03/2022 [facility] DATE CREATED AUTHOR AUTHOR'S ORGANIZ ATION 10/14/2022 [facility] Patient Care team informatio n (unrecognized section and content) Personnel Name: AV ANTHONY JR, DO Address: Address: [address] [place] [address] Personnel Name: RJAV RIVERA JR, DO Address: Address: [address] [place] [address] FOR RECORDS PERTAINING TO PATIENTS WHO ARE OR HAVE BEEN ENROLLED IN A CHEMICAL DEPENDENCY/SUBSTANCEABUSE PROGRAM, SOME INFORMATION MAY BE OMITTED. This clinical summary was aggregated from multiple sources. Caution should be exercised in using it in the provision of clinical care. This summary normalizes information from multiple sources, and as a consequence, information in this document may materially change the coding, format and clinical context of patient data. In addition, data may be omitted in some cases. CLINICAL DECISIONS SHOULD BE BASED ON THE PRIMARY CLINICAL RECORDS. [facility] [employer] [facility]. provides no warranty or guarantee of the accuracy or completeness of information in this document.
== END 2023-12-06 06:38 | disposition home or self-care (01) ==
LOC: RAD 06:37
PROVIDERS: Visit Provider Podiatrist Foot & Ankle Surgery
DX: M25.572 Pain in left ankle and joints of left foot (principal)
CPT/HCPCS: 73610

== ENCOUNTER 2024-06-17 05:13 | Observation (INO) | payer MEDICARE, SELFPAY ==
[2024-06-17] VITALS (14 sets, daily range): BP systolic 128–148; BP diastolic 74–89; PULSE 75–115; TEMP 36.5–36.9; O2SAT 94–99; BMI 30.7; BMI 31.3
--- OUTSIDE RECORDS SUMMARY | 2024-06-17 05:19 | XMS_ITS | CCD ---
Author Organization [facility] Care Team Providers Care Human Resources Hr Generalist Name Role Phone Keyana, Argenisd Firas Unavailable Unavailable Keyana, Ahmad Firas Unavailable Unavailable Annabelle, Kimberlee Unavailable Unavailable Annabelle, Kimberlee Unavailable Unavailable ALYSSA NAJERA Unavailable UnavailAV Singh Unavailable Av Sanchez Primary Care Provider VIOLETA LOONEY Consulting Unavailable [facility] [place] Primary Care Unavailable VALENCIA Rich, DR MARCUS Attending Unavailable VALENCIA Rich, DR MARCUS Admitting Unavailable AV ANTHONY JR Primary Care Physician Sergio STEPHENSON Attending Unavailable AV ANTHONY Referring Unavailable NILLSergio Attending Unavailable NILLSergio Attending Unavailable NILSergio Coppola Attending Unavailable KVNG DAVENPORT Referring Unavailable KVNG DAVENPORT Referring Unavailable HIGHLANDERKVNG Referring Unavailable KVNG DAVENPORT Referring Unavailable Allergies Allergy Classification Reported Allergen(s) Allergy Type Date of Onset Reaction(s) Facility (1 source) No Known Medication Allergies; Translations: [No Known Medication Allergies] Propensity to adverse reactions (disorder) [facility] Rep[facility] Medications Current Medications Medication Drug [...] 0 Start Date: 08/04/22 Status: Ordered Problems Active Problems Problem Classification Problem Date Documented Da [...] Onset: 3 Episodic Other aftercare (1 source) snf (current) use of aspirin; 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] Onset: 3 Episodic Other aftercare (1 source) Other ball ender (current) drug therapy; Translations: [OTH LONGTERM CURRENT DRUG THERAPY] Onset: 3 Episodic Other aftercare (1 source) snf (current) use of antithrombotics/antipl atelets; Translations: [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 ANTITHROMBOT/ANTIPLATL ETS] Onset: 3 Episodic Other and [...] DEPEND] Onset: 3 Episodic Unclassified (1 source) LONGTERM INJECT NONINSULN ANTIDIAB; Translations: [LONGTERM INJECT NONINSULN ANTIDIAB] Onset: 3 Unclassified (2 sources) Non-alcoholic fatty liver disease 08-04-2022 Past or Other Problems Problem Classification Problem Date Documented Da te Episodic/Chronic Other connective tissue disease (1 source) Achilles tendinitis, left leg; Translations: [Achilles tendinitis, left leg] Onset: 12-06-2023 Episodic Results Test Name Value Interpretation Reference Range Facility Ambulatory Visit Summaryon 0 10-13-2022 Ambulatory Visit Summary SERGIO ROJAS DOB:1950 Visit Date:10/13/2022 Ambulatory Visit Instructions Your Diagnosis Benign neoplasm of ascending colon Benign neoplasm of descending colon Your Care Team Attending Physician - Sergio STEPHENSON MD Primary Care Physician - AV ATNHONY JR, DO This Is Your Medications List [...] using Cologuard test Tubular adenoma of colon Normal [facility] Ambulatory Visit Summary SERGIO ROJAS :1950 Visit Date:10/13/2022 Ambulatory Visit Instructions Your Care Team Attending Physician - SACHIN [...] colorectal cancer screening using Cologuard test Normal [facility] Gen Surg Phone Visit- Telehe marbella 10-13-2022 [...] SARS-CoV-2 (COVID-19) mRNA-1273 vaccine 04/24/2020 Recorded Normal [facility] Comment on above: Result Comment: Elec tronically Signed By: SACHIN REGAN, Sergio Seymour\Date and Time Signed: 10/13/22 14:55 EDT Reminderson 10-13-2022 Reminders - From: Aparna Mcgee LPN To: N - Clinical; Sent: 10/13/2022 14:52:17 EDT Show up: 08/24/2027 07:00:00 EDT Subject: colonoscopy recall Due Date/Time: 09/23/2027 07:00:00 EDT Reminder/Recall Patient due for surveillance colonoscopy 09/23/2027. Normal [facility] Pathology Noteon 09-28-2022 Pathology Note [id number]#1.00C D:127 Normal [facility] Outside Colonoscopyon 2022 Outside Colonoscopy [id number]#1.00C D:127 Normal [facility] Lab Reportson 09-22-2022 Lab Reports [id number]#1.00C D:127 [facility] Pre-Certification Formon Pre-Certification Form [id number]#1.00CD :127 [facility] Consent for Procedure/Surger yon 08-18-2022 Consent for Procedure/Surgery [id number]#1.00C D:127 [facility] Ambulatory Visit Summaryon 0 08-17-2022 Ambulatory [...] colorectal cancer screening using Cologuard test Normal [facility] Physician Referralon 023 Physician Referral [id number] D:127 Normal [facility] Basic Metabolic Panelon 09-28 Calcium mass conc 8.1 mg/dL Low 8.4-10.2 [facility] Comment on above: Performed By: #### C BCWOD, PT, PTT, EDCTNI, CHEM8, LIPASE, CMETADD ####Unless otherwise noted, all testing performed by [address] [phone]: [id number] Director: Christ Farris M.D. Chloride molar conc 109 mmol/L High 98-108 [facility] Comment on above: Performed By: #### C BCWOD, PT, PTT, EDCTNI, CHEM8, LIPASE, CMETADD ####Unless otherwise noted, all testing performed by [address] [phone]: [id number] Director: Christ Farris M.D. CO2 molar conc 25 mmol/L Normal 21-32 [facility] Comment on above: Performed By: #### C BCWOD, PT, PTT, EDCTNI, CHEM8, LIPASE, CMETADD ####Unless otherwise noted, all testing performed by [address] [phone]: [id number] Director: Christ Farris M.D. Creatinine mass conc 0.81 mg/dL Normal 0.80-1.30 [facility] Comment on above: Performed By: #### C BCWOD, PT, PTT, EDCTNI, CHEM8, LIPASE, CMETADD ####Unless otherwise noted, all testing performed by [address] [phone]: [id number] Director: Christ Farris M.D. GFR/1.73 sq M predicted among blacks MDRD vol rate/area (S/P/Bld) mL/min/{1.73_m2} Normal [facility] Comment on above: Result Comment: Afri can Bol[place]ian GFR Calc Performed By: #### C BCWOD, PT, PTT, EDCTNI, CHEM8, LIPASE, CMETADD ####Unless otherwise noted, all testing performed by [address] [phone]: [id number] Director: Christ Farris M.D. GFR/1.73 sq M predicted among non-blacks MDRD vol rate/area (S/P/Bld) mL/min/{1.73_m2} Normal [facility] Comment on above: Result Comment: Non- [...] ####Unless otherwise noted, all testing performed by [address] [phone]: [id number] Director: Christ Farris M.D. Glucose mass conc 137 mg/dL High 70-99 [facility] Comment on above: Result Comment: This test result might be falsely depressed or falsely elevated onsamples drawn from patients taking Sulfasalazine and Sulfapyridine.Venipuncture should occur prior to taking either of these drugs. Performed By: #### C BCWOD, PT, PTT, EDCTNI, CHEM8, LIPASE, CMETADD ####Unless otherwise noted, all testing performed by [address] [phone]: [id number] Director: Christ Farris M.D. Potassium molar conc 4.1 mmol/L Normal 3.5-5.1 [facility] Comment on above: Performed By: #### C BCWOD, PT, PTT, EDCTNI, CHEM8, LIPASE, CMETADD ####Unless otherwise noted, all testing performed by [address] [phone]: [id number] Director: Christ Farris M.D. Sodium molar conc 140 mmol/L Normal 135-145 [facility] Comment on above: Performed By: #### C BCWOD, PT, PTT, EDCTNI, CHEM8, LIPASE, CMETADD ####Unless otherwise noted, all testing performed by [address] [phone]: [id number] Director: Christ Farris M.D. Urea nitrogen mass conc 14 mg/dL Normal 8-25 [facility] Comment on above: Performed By: #### C BCWOD, PT, PTT, EDCTNI, CHEM8, LIPASE, CMETADD ####Unless otherwise noted, all testing performed by [address] [phone]: [id number] Director: Christ Farris M.D. CBC with Diffon 10-10-2017 Basophils Auto #/vol (Bld) 0.0 K/mcL Normal 0-0.2 [facility] Comment on above: Performed By: #### C BCWOD, PT, PTT, EDCTNI, CHEM8, LIPASE, CMETADD ####Unless otherwise noted, all testing performed by [address] [phone]: [id number] Director: Christ Farris M.D. Basophils/100 WBC Auto (Bld) 0.4 % Normal [facility] Comment on above: Performed By: #### C BCWOD, PT, PTT, EDCTNI, CHEM8, LIPASE, CMETADD ####Unless otherwise noted, all testing performed by [address] [phone]: [id number] Director: Christ Farris M.D. Eosinophils Auto #/vol (Bld) 0.1 K/mcL Normal 0-0.5 [facility] Comment on above: Performed By: #### C BCWOD, PT, PTT, EDCTNI, CHEM8, LIPASE, CMETADD ####Unless otherwise noted, all testing performed by [address] [phone]: [id number] Director: Christ Farris M.D. Eosinophils/100 WBC Auto (Bld) 0.8 % Normal [facility] Comment on above: Performed By: #### C BCWOD, PT, PTT, EDCTNI, CHEM8, LIPASE, CMETADD ####Unless otherwise noted, all testing performed by [address] [phone]: [id number] Director: Christ Farris M.D. Erythrocyte distribution width Auto Ratio (RBC) 15.2 % High 10-14.3 [facility] Comment on above: Performed By: #### C BCWOD, PT, PTT, EDCTNI, CHEM8, LIPASE, CMETADD ####Unless otherwise noted, all testing performed by [address] [phone]: [id number] Director: Christ Farris M.D. Hematocrit Auto Volume Fraction (Bld) 37.9 % Normal 37.9-49.2 [facility] Comment on above: Performed By: #### C BCWOD, PT, PTT, EDCTNI, CHEM8, LIPASE, CMETADD ####Unless otherwise noted, all testing performed by [address] [phone]: [id number] Director: Christ Farris M.D. Hemoglobin mass conc (Bld) 12.7 g/dL Low 12.9-16.9 [facility] Comment on above: Performed By: #### C BCWOD, PT, PTT, EDCTNI, CHEM8, LIPASE, CMETADD ####Unless otherwise noted, all testing performed by [place] [phone]: [id number] Director: Christ Farris M.D. Lymphocytes Auto #/vol (Bld) 1.6 K/mcL Normal 0.9-3.6 [facility] Comment on above: Performed By: #### C BCWOD, PT, PTT, EDCTNI, CHEM8, LIPASE, CMETADD ####Unless otherwise noted, all testing performed by [address] [phone]: [id number] Director: Christ Farris M.D. Lymphocytes/100 WBC Auto (Bld) 12.8 % Normal [facility] Comment on above: Performed By: #### C BCWOD, PT, PTT, EDCTNI, CHEM8, LIPASE, CMETADD ####Unless otherwise noted, all testing performed by [address] [phone]: [id number] Director: Christ Farris M.D. MCH Auto Entitic mass (RBC) 26.1 pg Low 27.7-34.6 [facility] Comment on above: Performed By: #### C BCWOD, PT, PTT, EDCTNI, CHEM8, LIPASE, CMETADD ####Unless otherwise noted, all testing performed by [address] [phone]: [id number] Director: Christ Farris M.D. MCHC Auto mass conc (RBC) 33.5 g/dL Normal 32.9-35.5 [facility] Comment on above: Performed By: #### C BCWOD, PT, PTT, EDCTNI, CHEM8, LIPASE, CMETADD ####Unless otherwise noted, all testing performed by [place] [phone]: [id number] Director: Christ Farris M.D. MCV Auto Entitic volume (RBC) 77.9 fL Low 82.8-99.3 [facility] Comment on above: Performed By: #### C BCWOD, PT, PTT, EDCTNI, CHEM8, LIPASE, CMETADD ####Unless otherwise noted, all testing performed by [address] [phone]: [id number] Director: Christ Farris M.D. Monocytes Auto #/vol (Bld) 1.1 K/mcL High 0.2-0.6 [facility] Comment on above: Performed By: #### C BCWOD, PT, PTT, EDCTNI, CHEM8, LIPASE, CMETADD ####Unless otherwise noted, all testing performed by [address] [phone]: [id number] Director: Christ Farris M.D. Monocytes/100 WBC Auto (Bld) 8.8 % Normal [facility] Comment on above: Performed By: #### C BCWOD, PT, PTT, EDCTNI, CHEM8, LIPASE, CMETADD ####Unless otherwise noted, all testing performed by [address] [phone]: [id number] Director: Christ Farris M.D. Neutrophils Auto #/vol (Bld) 9.6 K/mcL High 1.4-6.8 [facility] Comment on above: Performed By: #### C BCWOD, PT, PTT, EDCTNI, CHEM8, LIPASE, CMETADD ####Unless otherwise noted, all testing performed by [address] [phone]: [id number] Director: Christ Farris M.D. Platelet mean volume Auto Entitic volume (Bld) 8.1 fL Normal 6.6-10.8 [facility] Comment on above: Performed By: #### C BCWOD, PT, PTT, EDCTNI, CHEM8, LIPASE, CMETADD ####Unless otherwise noted, all testing performed by [address] [phone]: [id number] Director: Christ Farris M.D. Platelets Auto #/vol (Bld) 280 K/mcL Normal 139-354 [facility] Comment on above: Performed By: #### C BCWOD, PT, PTT, EDCTNI, CHEM8, LIPASE, CMETADD ####Unless otherwise noted, all testing performed by [address] [phone]: [id number] Director: Christ Farris M.D. RBC Auto #/vol (Bld) 4.87 M/mcL Normal 4.0-5.5 [facility] Comment on above: Performed By: #### C BCWOD, PT, PTT, EDCTNI, CHEM8, LIPASE, CMETADD ####Unless otherwise noted, all testing performed by [address] [phone]: [id number] Director: Christ Farris M.D. Segmented Neut % 77.2 % Normal [facility] Comment on above: Performed By: #### C BCWOD, PT, PTT, EDCTNI, CHEM8, LIPASE, CMETADD ####Unless otherwise noted, all testing performed by [address] [phone]: [id number] Director: Christ Farris M.D. WBC Auto #/vol (Bld) 12.4 K/mcL High 3.6-10.4 [facility] Comment on above: Performed By: #### C BCWOD, PT, PTT, EDCTNI, CHEM8, LIPASE, CMETADD ####Unless otherwise noted, all testing performed by [address] [phone]: [id number] Director: Christ Farris M.D. Cardiac Troponin-Ion 10-10-2 018 Troponin I.cardiac mass conc No Biomarker evidence of myocardial injury within the past 14 hours. Normal [facility] Comment on above: Performed By: #### C BCWOD, PT, PTT, EDCTNI, CHEM8, LIPASE, CMETADD ####Unless otherwise noted, all testing performed by [address] [phone]: [id number] Director: Christ Farris M.D. Troponin I.cardiac mass conc ng/mL Normal < 45.0 [facility] Comment on above: Result Comment: Elev [...] ####Unless otherwise noted, all testing performed by [address] [phone]: [id number] Director: Christ Farris M.D. Glucose, POCon 10-10-2017 Glucose mass conc 99 mg/dL Normal 80-115 [facility] Comment on above: Performed By: #### C BCWOD, PT, PTT, EDCTNI, CHEM8, LIPASE, CMETADD ####Unless otherwise noted, all testing performed by [address] [phone]: [id number] Director: Christ Farris M.D. Glucose mass conc 104 mg/dL Normal 80-115 [facility] Comment on above: Performed By: #### C BCWOD, PT, PTT, EDCTNI, CHEM8, LIPASE, CMETADD ####Unless otherwise noted, all testing performed by [address] [phone]: [id number] Director: Christ Farris M.D. Magnesiumon 10-10-2017 Magnesium mass conc 1.8 mg/dL Normal 1.6-2.4 [facility] Comment on above: Performed By: #### C BCWOD, PT, PTT, EDCTNI, CHEM8, LIPASE, CMETADD ####Unless otherwise noted, all testing performed by [address] [phone]: [id number] Director: Christ Farris M.D. Basic Metabolic Panelon 09-28 Calcium mass conc 8.5 mg/dL Normal 8.4-10.2 [facility] Comment on above: Performed By: #### C BCWOD, PT, PTT, EDCTNI, CHEM8, LIPASE, CMETADD ####Unless otherwise noted, all testing performed by [address] [phone]: [id number] Director: Chirst Farris M.D. Chloride molar conc 105 mmol/L Normal 98-108 [facility] Comment on above: Performed By: #### C BCWOD, PT, PTT, EDCTNI, CHEM8, LIPASE, CMETADD ####Unless otherwise noted, all testing performed by [address] [phone]: [id number] Director: Christ Farris M.D. CO2 molar conc 27 mmol/L Normal 21-32 [facility] Comment on above: Performed By: #### C BCWOD, PT, PTT, EDCTNI, CHEM8, LIPASE, CMETADD ####Unless otherwise noted, all testing performed by [address] [phone]: [id number] Director: Christ Farris M.D. Creatinine mass conc 1.04 mg/dL Normal 0.80-1.30 [facility] Comment on above: Performed By: #### C BCWOD, PT, PTT, EDCTNI, CHEM8, LIPASE, CMETADD ####Unless otherwise noted, all testing performed by [address] [phone]: [id number] Director: Christ Farris M.D. GFR/1.73 sq M predicted among blacks MDRD vol rate/area (S/P/Bld) mL/min/{1.73_m2} Normal [facility] Comment on above: Result Comment: Afri can [place] GFR Calc Performed By: #### C BCWOD, PT, PTT, EDCTNI, CHEM8, LIPASE, CMETADD ####Unless otherwise noted, all testing performed by [address] [phone]: [id number] Director: Christ Farris M.D. GFR/1.73 sq M predicted among non-blacks MDRD vol rate/area (S/P/Bld) mL/min/{1.73_m2} Normal [facility] Comment on above: Result Comment: Non- [...] ####Unless otherwise noted, all testing performed by [address] [phone]: [id number] Director: Christ Farris M.D. Glucose mass conc 172 mg/dL High 70-99 [facility] Comment on above: Result Comment: This test result might be falsely depressed or falsely elevated onsamples drawn from patients taking Sulfasalazine and Sulfapyridine.Venipuncture should occur prior to taking either of these drugs. Performed By: #### C BCWOD, PT, PTT, EDCTNI, CHEM8, LIPASE, CMETADD ####Unless otherwise noted, all testing performed by [address] [phone]: [id number] Director: Christ Farris M.D. Potassium molar conc 3.8 mmol/L Normal 3.5-5.1 [facility] Comment on above: Performed By: #### C BCWOD, PT, PTT, EDCTNI, CHEM8, LIPASE, CMETADD ####Unless otherwise noted, all testing performed by [address] [phone]: [id number] Director: Christ Farris M.D. Sodium molar conc 140 mmol/L Normal 135-145 [facility] Comment on above: Performed By: #### C BCWOD, PT, PTT, EDCTNI, CHEM8, LIPASE, CMETADD ####Unless otherwise noted, all testing performed by [address] [phone]: [id number] Director: Christ Farris M.D. Urea nitrogen mass conc 11 mg/dL Normal 8-25 [facility] Comment on above: Performed By: #### C BCWOD, PT, PTT, EDCTNI, CHEM8, LIPASE, CMETADD ####Unless otherwise noted, all testing performed by [address] [phone]: [id number] Director: Christ Farris M.D. CBC w/o Diffon 10-09-2017 Erythrocyte distribution width Auto Ratio (RBC) 15.2 % High 10-14.3 [facility] Comment on above: Performed By: #### C BCWOD, PT, PTT, EDCTNI, CHEM8, LIPASE, CMETADD ####Unless otherwise noted, all testing performed by [address] [phone]: [id number] Director: Christ Farris M.D. Hematocrit Auto Volume Fraction (Bld) 42.6 % Normal 37.9-49.2 [facility] Comment on above: Performed By: #### C BCWOD, PT, PTT, EDCTNI, CHEM8, LIPASE, CMETADD ####Unless otherwise noted, all testing performed by [address] [phone]: [id number] Director: Christ Farris M.D. Hemoglobin mass conc (Bld) 14.1 g/dL Normal 12.9-16.9 [facility] Comment on above: Performed By: #### C BCWOD, PT, PTT, EDCTNI, CHEM8, LIPASE, CMETADD ####Unless otherwise noted, all testing performed by [address] [phone]: [id number] Director: Christ Farris M.D. MCH Auto Entitic mass (RBC) 25.8 pg Low 27.7-34.6 [facility] Comment on above: Performed By: #### C BCWOD, PT, PTT, EDCTNI, CHEM8, LIPASE, CMETADD ####Unless otherwise noted, all testing performed by [place] [phone]: [id number] Director: Christ Farris M.D. MCHC Auto mass conc (RBC) 33.1 g/dL Normal 32.9-35.5 [facility] Comment on above: Performed By: #### C BCWOD, PT, PTT, EDCTNI, CHEM8, LIPASE, CMETADD ####Unless otherwise noted, all testing performed by [place] [phone]: [id number] Director: Christ Farris M.D. MCV Auto Entitic volume (RBC) 77.9 fL Low 82.8-99.3 [facility] Comment on above: Performed By: #### C BCWOD, PT, PTT, EDCTNI, CHEM8, LIPASE, CMETADD ####Unless otherwise noted, all testing performed by [address] [phone]: [id number] Director: Christ Farris M.D. Platelet mean volume Auto Entitic volume (Bld) 7.7 fL Normal 6.6-10.8 [facility] Comment on above: Performed By: #### C BCWOD, PT, PTT, EDCTNI, CHEM8, LIPASE, CMETADD ####Unless otherwise noted, all testing performed by [address] [phone]: [id number] Director: Christ Farris M.D. Platelets Auto #/vol (Bld) 319 K/mcL Normal 139-354 [facility] Comment on above: Performed By: #### C BCWOD, PT, PTT, EDCTNI, CHEM8, LIPASE, CMETADD ####Unless otherwise noted, all testing performed by [address] [phone]: [id number] Director: Christ Farris M.D. RBC Auto #/vol (Bld) 5.48 M/mcL Normal 4.0-5.5 [facility] Comment on above: Performed By: #### C BCWOD, PT, PTT, EDCTNI, CHEM8, LIPASE, CMETADD ####Unless otherwise noted, all testing performed by [address] [phone]: [id number] Director: Christ Farris M.D. WBC Auto #/vol (Bld) 13.6 K/mcL High 3.6-10.4 [facility] Comment on above: Performed By: #### C BCWOD, PT, PTT, EDCTNI, CHEM8, LIPASE, CMETADD ####Unless otherwise noted, all testing performed by [address] [phone]: [id number] Director: Christ Farris M.D. CHEST (ONE VIEW ONLY)on 09-28 CHEST (ONE VIEW ONLY) Final ReportAccession No: [id number] Performed: Oct 09 2017 6:52PMExamination: CHEST (ONE VIEW ONLY)CHEST (ONE VIEW ONLY):HISTORY: Chest pain and shortness of breath.COMPARISON: None.FINDINGS: The cardiomediastinal silhouette appears normal. The lungs areclear.There is no pleural effusion or pneumothorax. There is a surgical plateandscrews in the cervical spine. Bones and soft tissues otherwise appearunremarkable.IMPR ESSION:No acute cardiopulmonary process.Interpreting Physician: MARLI BEE M.D.Trans: lwolfe : cc: Normal [facility] CMET Add-On Testson 10-10-19 18 Albumin mass conc 3.4 g/dL Normal 3.2-5.2 [facility] Comment on above: Performed By: #### C BCWOD, PT, PTT, EDCTNI, CHEM8, LIPASE, CMETADD ####Unless otherwise noted, all testing performed by [address] [phone]: [id number] Director: Christ Farris M.D. ALP enzyme act/vol 88 U/L Normal 40-150 [facility] Comment on above: Performed By: #### C BCWOD, PT, PTT, EDCTNI, CHEM8, LIPASE, CMETADD ####Unless otherwise noted, all testing performed by [address] [phone]: [id number] Director: Christ Farris M.D. ALT enzyme act/vol 26 U/L Normal 14-65 [facility] Comment on above: Result Comment: This test result might be falsely depressed or falsely elevated onsamples drawn from patients taking Sulfasalazine and Sulfapyridine.Venipuncture should occur prior to taking either of these drugs. Performed By: #### C BCWOD, PT, PTT, EDCTNI, CHEM8, LIPASE, CMETADD ####Unless otherwise noted, all testing performed by [address] [phone]: [id number] Director: Christ Farris M.D. AST enzyme act/vol 14 U/L Normal 0-45 [facility] Comment on above: Result Comment: This test result might be falsely depressed or falsely elevated onsamples drawn from patients taking Sulfasalazine and Sulfapyridine.Venipuncture should occur prior to taking either of these drugs. Performed By: #### C BCWOD, PT, PTT, EDCTNI, CHEM8, LIPASE, CMETADD ####Unless otherwise noted, all testing performed by [address] [phone]: [id number] Director: Christ Farris M.D. Bilirubin mass conc 0.4 mg/dL Normal 0.3-1.2 [facility] Comment on above: Performed By: #### C BCWOD, PT, PTT, EDCTNI, CHEM8, LIPASE, CMETADD ####Unless otherwise noted, all testing performed by [address] [phone]: [id number] Director: Christ Farris M.D. Protein mass conc 6.6 g/dL Normal 6.0-8.0 [facility] Comment on above: Performed By: #### C BCWOD, PT, PTT, EDCTNI, CHEM8, LIPASE, CMETADD ####Unless otherwise noted, all testing performed by [address] [phone]: [id number] Director: Christ Farris M.D. Cardiac Troponin-Ion 018 Troponin I.cardiac mass conc ng/mL Normal < 45.0 [facility] Comment on above: Result Comment: Elev [...] ####Unless otherwise noted, all testing performed by [address] [phone]: [id number] Director: Christ Farris M.D. Troponin I.cardiac mass conc No Biomarker evidence of myocardial injury within the past 14 hours. Normal [facility] Comment on above: Performed By: #### C TNI, LIPID ####Unless otherwise noted, all testing performed by [address] [phone]: [id number] Director: Christ Farris M.D. ED Cardiac Troponin-Ion 09-28 Troponin I.cardiac mass conc ng/mL Normal < 45 [facility] Comment on above: Result Comment: Elev [...] ####Unless otherwise noted, all testing performed by [address] [id number]: [id number] Director: Christ Farris M.D. Lactic Acidon 10-09-2017 Lactate molar conc 1.8 mmol/L Normal 0.6-2.0 [facility] Comment on above: Performed By: #### L A ####Unless otherwise noted, all testing performed by [address] [phone]: [id number] Director: Christ Farris M.D. Lipaseon 10-09-2017 Lipase enzyme act/vol 160 U/L Normal 73-393 [facility] Comment on above: Performed By: #### C BCWOD, PT, PTT, EDCTNI, CHEM8, LIPASE, CMETADD ####Unless otherwise noted, all testing performed by [address] [phone]: [id number] Director: Christ Farris M.D. Lipid Panelon 10-09-2017 Cholesterol in HDL mass conc 43 mg/dL Normal 40-59 [facility] Comment on above: Performed By: #### C BCWOD, PT, PTT, EDCTNI, CHEM8, LIPASE, CMETADD ####Unless otherwise noted, all testing performed by [address] [phone]: [id number] Director: Christ Farris M.D. Cholesterol in LDL mass conc 64 mg/dL Normal 10-150 [facility] Comment on above: Performed By: #### C BCWOD, PT, PTT, EDCTNI, CHEM8, LIPASE, CMETADD ####Unless otherwise noted, all testing performed by [address] [phone]: [id number] Director: Christ Farris M.D. Cholesterol in VLDL mass conc 35 mg/dL Normal 5-40 [facility] Comment on above: Performed By: #### C BCWOD, PT, PTT, EDCTNI, CHEM8, LIPASE, CMETADD ####Unless otherwise noted, all testing performed by [address] [phone]: [id number] Director: Christ Farris M.D. Cholesterol mass conc 142 mg/dL Normal 100-199 [facility] Comment on above: Performed By: #### C BCWOD, PT, PTT, EDCTNI, CHEM8, LIPASE, CMETADD ####Unless otherwise noted, all testing performed by [address] [phone]: [id number] Director: Christ Farris M.D. Cholesterol.total/C holesterol in HDL mass ratio 3.3 {ratio} Normal 3.2-5.0 [facility] Comment on above: Result Comment: Male Coronary Heart Disease Risk Factor (CHDRF):Average risk= 5.01/2 Average risk= 3.42 times Average risk= 9.6 Performed By: #### C BCWOD, PT, PTT, EDCTNI, CHEM8, LIPASE, CMETADD ####Unless otherwise noted, all testing performed by [address] [phone]: [id number] Director: Christ Farris M.D. Triglyceride mass conc 174 mg/dL High 25-120 [facility] Comment on above: Performed By: #### C BCWOD, PT, PTT, EDCTNI, CHEM8, LIPASE, CMETADD ####Unless otherwise noted, all testing performed by [address] [phone]: [id number] Director: Christ Farris M.D. Partial Thromboplastin Timeo n 10-09-2017 aPTT Coag time (Bld) 24 s Normal 23.0-34.0 [facility] Comment on above: Result Comment: Juliette gorman therapeutic range for PTT is 68-104 sec. Performed By: #### C BCWOD, PT, PTT, EDCTNI, CHEM8, LIPASE, CMETADD ####Unless otherwise noted, all testing performed by [address] [phone]: [id number] Director: Christ Farris M.D. Protimeon 10-09-2017 INR Coag RelTime (PPP) 0.95 {INR} Normal [facility] Comment on above: Result Comment: The [place] [employer] recommended therapeutic rangefor Warfarin (Coumadin) therapy goals:PROPHYLAXIS/TREATMENT of:INRVenous Thrombosis, Pulmonary Embolism2.0-3.0Prevention of VTE (Orthopedic Surgery)2.0-3.0Atrial Fibrillation2.0-3.0Myocardial Infarction2.0-3.0Mechanical Prosthetic Heart Valves (Aortic position)2.0-3.0Mechanical Prosthetic Heart Valves (Mitral Position)2.5-3.5American College of Chest Physicians evidence-based clinical practiceguidelines. CHEST. 2012 (9th ed) Performed By: #### C BCWOD, PT, PTT, EDCTNI, CHEM8, LIPASE, CMETADD ####Unless otherwise noted, all testing performed by [address] [phone]: [id number] Director: Christ Farris M.D. Prothrombin time (PT) Coag time (PPP) 12.4 s Normal 11.8-14.3 [facility] Comment on above: Performed By: #### C BCWOD, PT, PTT, EDCTNI, CHEM8, LIPASE, CMETADD ####Unless otherwise noted, all testing performed by [address] [phone]: [id number] Director: Christ Farris M.D. Vital Signs Date Time Vital Sign Value Performing Clinician Joe quinteros 08-17-2022 14:34-0400 Blood Pressure Location Sergio NILL [facility] 08-17-2022 14:34-0400 Diastolic blood pressure 90 mm[Hg] [facility] N[facility] 08-17-2022 14:34-0400 Heart rate 70 /min [facility]ergio N[facility] 08-17-2022 14:34-0400 Respiratory rate 16 /min Sergio NILL [facility] 08-17-2022 14:34-0400 Systolic blood pressure 130 mm[Hg] Sergio NILL [facility] Encounters Encounter Date Encounter Type Care Provider Facility Start: 03-01-2024 ambulatory [facility] Start: 01-30-2024 ambulatory [facility] Start: 01-02-2024 ambulatory [facility] Start: 12-06-2023 ambulatory [facility] Start: 10-13-2022 End: 10-14-2022 ambulatory Sergio R NILL Facility: [facility] Start: 10-13-2022 End: 10-13-2022 Patient encounter procedure Sergio R NILL [facility] Start: 09-22-2022 End: 09-23-2022 ambulatory Sergio R NILL Facility:[id number] Start: 08-17-2022 End: 08-18-2022 ambulatory Sergio R NILL Facility: [facility] Start: 08-17-2022 End: 08-17-2022 Patient encounter procedure Sergio R NILL [facility] Start: 08-02-2022 ambulatory Sergio R NILL Facility : [facility] Start: 05-31-2022 End: 05-31-2022 ambulatory VIOLETA LOONEY Facility: Start: 04-17-2020 End: 04-17-2020 Orders Only Linh Oseguera Work Phone: [facility] Start: 10-26-2017 Patient encounter ALYSSA MANCILLA [facility] Start: 10-18-2017 Patient encounter Kimberlee Schmidt ity:[facility] Start: 10-09-2017 End: 10-10-2017 Patient encounter Trisha Starr [place] Facility:[facility] Procedures Date Procedure Procedure Detail Performing Clinician Start: 09-22-2022 Colonoscopy Sergio NI LL Start: 04-15-2011 Colonoscopy Sergio NI LL Start: 02-28-2002 Colonoscopy Sergio NI LL Cholecystectomy Sergio NILL History of surgical procedure on cervical spine Sergio NILL Placement of stent i n cardiac conduit Sergio NILL Transurethral prostatectomy Sergio NILL Uvulopalatoplasty Sergio NI LL Immunizations Immunization Date Immunization Notes Care Provider Fa cility 10-08-2021 SARS-CoV-2 (COVID-19 ) mRNA-1273 vaccine Sergio NILL [facility] 12-28-2020 SARS-CoV-2 (COVID-19 ) mRNA-1273 vaccine Sergio NILL [facility] 05-21-2020 SARS-CoV-2 (COVID-19 ) mRNA-1273 vaccine Sergio NILL [facility] 04-24-2020 SARS-CoV-2 (COVID-19 ) mRNA-1273 vaccine Sergio NILL [facility] Payers Date Payer Category Payer Private Health Insurance [id number] 2017 Medicare [place] A[place] MEDICARE PLAN (PPO) [id number] 2017-Present [id number] 2017 Private Health Insurance NEYolie [id number] 1959 Medicare [id number] 1950 Unknown [id number]. 593 1950 Unknown [id number] [id number]. 727 1950 Unknown [id number] 2.16.840.1.200512.3.579.2. 727 1950 Unknown [id number] 2.16.840.1.558378.3.579.2. 727 1950 Unknown [id number] 2.16.840.1.416375.3.579.2. 727 1950 Unknown [id number] 2.16.840.1.316377.3.579.2. 1286 1950 Unknown [id number] 2.16.840.1.373360.3.579.2. 1286 1950 Unknown [id number] 2.16.840.1.950912.3.579.2. 1286 1950 Unknown [id number] 2.16.840.1.447116.3.579.2. 1286 Social History Date Type Detail [facility] Start: 08-17-2022 Tobacco smoking status Ex-smoker (fi nding) [facility] Tobacco smoking status Never [facility] Sex Assigned At Male [facility] Functional Status Date Assessment Result Facility 08-17-2022 Functional Status N/A [facility] Clinical Note 08-17-2022 Note Date & Type [...] Use:. Never Smokeless (more content not included)... [facility] Comment on above: Result Comment: Elec tronically Signed By: SACHIN REGAN, Sergio Persaud.eusebio\Date and Time Signed: 08/17/22 15:09 EDT Evaluation + Plan note Note Date & Type Note Facility Evaluation + Plan note No data available for this section [facility] Discharge instructions Note Date & Type Note Facility Hospital Discharge instructions No data available for this section [facility] Progress note Note Date & Type Note Facility Progress note No data available for this section [facility] Summary Purpose Family History No Family History [...] section and content) DATE CREATED AUTHOR 10/21/2017 [facility] DATE CREATED AUTHOR AUTHOR'S ORGANIZ ATION 10/29/2017 [facility] DATE CREATED AUTHOR AUTHOR'S ORGANIZ ATION 06/03/2022 [facility] DATE CREATED AUTHOR AUTHOR'S ORGANIZ ATION 10/14/2022 Addy Daigle [facility] DATE CREATED AUTHOR AUTHOR'S ORGANIZ ATION 03/08/2024 [facility] Patient Care team informatio n (unrecognized section and content) Personnel Name: AV ANTHONY JR, DO Address: Address: [address] [place] [id number] Personnel Name: AV ANTHONY JR, DO Address: Address: [address] [place] [id number] FOR RECORDS PERTAINING TO PATIENTS WHO ARE [...] BE BASED ON THE PRIMARY CLINICAL RECORDS. [employer] provides no warranty or guarantee of the accuracy or completeness of information in this document.
--- NOTE | 2024-06-17 05:25 | ED_ITS ---
HPI - Nausea/Vomiting/Diarrhea General Chief complaint: Nausea/Vomiting/Diarrhea Stated complaint: vomitimg Time Seen by Provider: 06/17/24 05:21 Source: patient Mode of arrival: walk-in Limitations: no limitations History of Present Illness HPI Narrative: ill with recurrent vomiting and diarrhea for 4 days. states he ate [employer] the AM he became ill . It wasn't until the evening that he began vomiting and sadler ving diarrhea. Not able to keep any thing down. Feels short of breath today. mild cough. No fever Related Data Home Medications ?Medication ?Instructions ?Recorded ?Confirmed clopidogrel 75 mg tablet (Plavix) 75 mg PO DAILY 09/14/22 06/17/24 dulaglutide 4.5 mg/0.5 mL 4.5 mg subcut QWEEK 09/14/22 06/17/24 subcutaneous pen injector (Trulicity) empagliflozin 25 mg tablet 25 mg PO DAILY 09/14/22 06/17/24 (Jardiance) ezetimibe 10 mg tablet (Zetia) 5 mg PO DAILY 09/14/22 06/17/24 famotidine 40 mg tablet 40 mg PO DAILY 09/14/22 06/17/24 rosuvastatin 20 mg tablet 20 mg PO DAILY 09/14/22 06/17/24 zolpidem 5 mg tablet (Ambien) 5 mg PO ONCE 09/14/22 06/17/24 Allergies Allergy/AdvReac Type Severity Reaction Status Date / Time No Known Drug Allergies Allergy Verified 06/17/24 05:21 Review of Systems ROS0 Status of ROS 10 or more systems reviewed and unremark able except as noted in history and below [facility] Medical History (Updated 06/17/24 @ 06:40 by Aaron Jha MD) Sleep apnea ?G47.30 - Sleep apnea, unspecified (ICD-10) Obesity ?E66.9 - Obesity, unspecified (ICD-10) Nonalcoholic fatty liver disease ?K76.0 - Fatty (change of) liver, not elsewhere classified (ICD-10) Insomnia ?G47.00 - Insomnia, unspecified (ICD-10) Colon polyp ?K63.5 - Polyp of colon (ICD-10) Coronary artery disease ?I25.10 - Atherosclerotic heart disease of [place] coronary artery without angina pectoris (ICD-10) Atrial fibrillation ?I48.91 - Unspecified atrial fibrillation (ICD-10) Surgical History (Updated 09/14/22 @ 13:14 by Nancy Payne) H/O transurethral resection of prostate ?Z98.890 - Other specified postprocedural states (ICD-10) ?Z90.79 - Acquired absence of other genital organ(s) (ICD-10) History of heart artery stent ?Z95.5 - Presence of coronary angioplasty implant and graft (ICD-10) H/O cervical spine surgery ?Z98.890 - Other specified postprocedural states (ICD-10) History of cholecystectomy ?Z90.49 - Acquired absence of other specified parts of digestive tract (ICD- 10) H/O colonoscopy ?Z98.890 - Other specified postprocedural states (ICD-10) Family History (Updated 09/14/22 @ 13:15 by Nancy Payne) Brother Family history of cancer Father Family history of myocardial infarction Mother Dementia Social History (Updated 09/14/22 @ 13:16 by Nancy Payne) Within the past year, how often did you have a drink containing alcohol: never Score interpretation: A score less than 4 is consistent with normal alcohol consumption. Smoking status: Former smoker What tobacco products do you use: cigarettes Packs per day: 1 Years smoked: 30 Smoking pack-years: 30.00 Smoking quit date/years: >15 years ago Non-prescribed substance use: denies use Little interest or pleasure in doing things: not at all Feeling down, depressed, or hopeless: not at all Exam Constitutional Vital Signs, click to edit/add: Last Vital Signs Temp 97.7 F 06/17/24 05:17 Pulse 115 H 06/17/24 05:17 Resp 22 H 06/17/24 05:17 BP 144/84 H 06/17/24 05:17 Pulse Ox 96 06/17/24 05:17 O2 Del Method Room Air 06/17/24 05:17 Common normals: average body habitus, oriented x3, no limitations, healthy appearing, alert and well nourished General appearance: cooperative and comfortable Other: appears mildly short of breath HENMT Common normals: normocephalic and head/scalp atraumatic Eye Common normals: EOMs intact bilaterally and conjunctivae normal Respiratory Common normals: normal respiratory effort, no retractions, no use of accessory muscles and clear to auscultation bilaterally Cardio Common normals: regular rate, regular rhythm, S1 normal heart sound and S2 normal heart sound GI Common normals: Normal to inspection, nondistended, normoactive bowel sounds present, soft to palpation and non-tender Extremity Common normals: normal to inspection and full ROM Neuro Common normals: oriented x3, CN's II-XII intact bilaterally, moves all extremities and no focal motor deficits Psych Appearance: grossly normal Course Vital Signs Vital signs: Vital Signs Temperature 97.7 F 06/17/24 05:17 Pulse Rate 115 H 06/17/24 05:17 Respiratory Rate 22 H 06/17/24 05:17 Blood Pressure 144/84 H 06/17/24 05:17 Pulse Oximetry 96 06/17/24 05:17 Oxygen Delivery Method Room Air 06/17/24 05:17 Temperature 97.7 F 06/17/24 05:17 Pulse Rate 115 H 06/17/24 05:17 Respiratory Rate 22 H 06/17/24 05:17 Blood Pressure 144/84 H 06/17/24 05:17 Pulse Oximetry 96 06/17/24 05:17 Oxygen Delivery Method Room Air 06/17/24 05:17 MDM - Nausea/Vomiting/Diarrhea MDM Narrative Medical decision making narrative: patient presents with gastroenteritis for past 4 days. Manifested by vomiting and diarrhea. Also short of breath walking to the exam room. No chest pain. workup initiated including hydration, antiemetic and Lomotil for diarrhea. Labs ordered and pending. Diagnostic studies performed and report pending. Care transferred to oncoming physician at change of shift Lab Data Labs: Lab Results 06/17/24 Range/Units 05:24 WBC 8.2 (4.0-11.0) 10^3/uL RBC 7.01 H (4.70-6.10) 10^6/uL Hgb 18.7 H (14.0-18.0) g/dL Hct 54.8 H (42.0-54.0) % MCV 78.2 L (80.0-94.0) fL MCH 26.7 (25.9-34.0) pg MCHC 34.1 (29.9-35.2) g/dL RDW 16.1 H (11.0-15.0) % Plt Count 257 (150-450) 10^3/uL MPV 10.2 (9.5-13.5) fL Neut % (Auto) 66.9 (43.0-75.0) % Lymph % (Auto) 16.7 L (20.5-60.0) % Sullivan % (Auto) 14.5 H (1.7-12.0) % Eos % (Auto) 1.3 (0.9-7.0) % Baso % (Auto) 0.2 (0.2-2.0) % Neut # (Auto) 5.5 (1.4-6.5) 10^3/uL Lymph # (Auto) 1.4 (1.2-3.8) 10^3/uL Sullivan # (Auto) 1.2 H (0.3-0.8) 10^3/uL Eos # (Auto) 0.1 (0.0-0.7) 10^3/uL Baso # (Auto) 0.0 (0.0-0.1) 10^3/uL Abs Immat Gran (auto) 0.03 (0.00-0.03) 10^3/uL Imm/Tot Granulo (auto) 0.4 (0.0-0.5) % Sodium 135 L (136-145) mmol/L Potassium 3.5 (3.5-5.1) mmol/L Chloride 101 (98-107) mmol/L Carbon Dioxide 14.9 L (21.0-32.0) mmol/L Anion Gap 22.6 BUN 29.0 H (7.0-18.0) mg/dL Creatinine 1.93 H (0.70-1.30) mg/dL Est GFR ( Amer) 42 L (>=60 mL/min/1.73m^2) Est GFR (Non-Af Amer) 34 L (>=60 mL/min/1.73m^2) BUN/Creatinine Ratio 15.0 Glucose 156 H (74-106) mg/dL Lactate 2.0 (0.4-2.0) mmol/L Calcium 9.7 (8.5-10.1) mg/dL Total Bilirubin 0.6 (0.2-1.0) mg/dL AST 43 H (15-37) U/L ALT 69 H (16-63) U/L Alkaline Phosphatase 93 (46-116) U/L Troponin I High Sens 8.1 (4.0-76.1) pg/mL Total Protein 7.8 (6.4-8.2) g/dL Albumin 4.0 (3.4-5.0) g/dL Globulin 3.8 g/dL Albumin/Globulin Ratio 1.1 Lipase 60.0 (16.0-77.0) U/L Discharge Plan Discharge Patient Disposition: Still a Patient
--- NOTE | 2024-06-17 05:25 | ECG_ITS ---
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 Measurements Intervals [place] Rate: 108 P: 65 VT: 156 QRS: 85 QRSD: 80 T: 42 QT: 330 QTc: 393 Interpretive Statements 1120 Sinus tachycardia 4068 Nonspecific Twave abnormality 9140 abnormal rhythm ECG Compared to ECG 06/24/2018 21:24:58 No significant changes Electronically Signed On 06-18-2024 21:40:11 EDT by YARA MARISCAL M.D.
[2024-06-17 05:37] LABS: Basophils Percent Auto 0.2 % (0.2-2.0); Eosinophils Absolute Auto 0.1 10^3/uL (0.0-0.7); Eosinophils Percent Auto 1.3 % (0.9-7.0); Hematocrit 54.8 % (42.0-54.0); Hemoglobin 18.7 g/dL (14.0-18.0); Immature Granulocytes Abs Auto 0.03 10^3/uL (0.00-0.03); Immature Granulocytes Pct Auto 0.4 % (0.0-0.5); Lymphocytes Absolute Auto 1.4 10^3/uL (1.2-3.8); Lymphocytes Percent Auto 16.7 % (20.5-60.0); Mean Corpuscular HGB Conc 34.1 g/dL (29.9-35.2); Mean Corpuscular Hemoglobin 26.7 pg (25.9-34.0); Mean Corpuscular Volume 78.2 fL (80.0-94.0); Mean Platelet Volume 10.2 fL (9.5-13.5); Monocytes Absolute Auto 1.2 10^3/uL (0.3-0.8); Monocytes Percent Auto 14.5 % (1.7-12.0); Neutrophils Absolute Auto 5.5 10^3/uL (1.4-6.5); Neutrophils Percent Auto 66.9 % (43.0-75.0); Platelet Count 257 10^3/uL (150-450); Red Blood Count 7.01 10^6/uL (4.70-6.10); Red Cell Distribution Width 16.1 % (11.0-15.0); White Blood Count 8.2 10^3/uL (4.0-11.0)
[2024-06-17] MEDS: 0.9 % SODIUM CHLORIDE 1,000 ML 999 ML IV (05:45)
[2024-06-17] MEDS: ONDANSETRON PF 4 MG/2 ML VIAL IV (05:45)
[2024-06-17 05:51] LABS: Alanine Aminotransferase 69 U/L (16-63); Albumin Globulin Ratio 1.1; Alkaline Phosphatase 93 U/L (46-116); Anion Gap 22.6; Aspartate Amino Transferase 43 U/L (15-37); Bilirubin Total 0.6 mg/dL (0.2-1.0); Calcium 9.7 mg/dL (8.5-10.1); Carbon Dioxide 14.9 mmol/L (21.0-32.0); Chloride 101 mmol/L (98-107); Estimated GFR (African America 42 (>=60 mL/min/1.73m^2); Estimated GFR (Non-African Ame 34 (>=60 mL/min/1.73m^2); Globulin 3.8 g/dL; Glucose 156 mg/dL (74-106); Potassium 3.5 mmol/L (3.5-5.1); Sodium 135 mmol/L (136-145); Total Protein 7.8 g/dL (6.4-8.2); Troponin I High Sensitivity 8.1 pg/mL (4.0-76.1)
[2024-06-17 06:45] LABS: D Dimer 0.46 mg/L FEU (<=0.59)
[2024-06-17] MEDS: 0.9 % SODIUM CHLORIDE 1,000 ML 100 ML IV (07:24)
[2024-06-17 08:42] LABS: Influenza Virus A Antigen Negative; Influenza Virus B Antigen Negative; Internal Control Within Normal Limits; SARS-CoV-2 Ag NEGATIVE (NEGATIVE)
--- OUTSIDE RECORDS SUMMARY | 2024-06-17 08:56 | XMS_ITS | CCD ---
Author Organization [facility] Care Team Providers Care Administrative Staff Supervisor Name Role Phone Keyana, Argenisd Firas Unavailable Unavailable Keyana, Ahmad Firas Unavailable Unavailable Annabelle, Kimberlee Unavailable Unavailable Annabelle, Kimberlee Unavailable Unavailable ALYSSA NAJERA Unavailable UnavailAV Singh Unavailable Av Sanchez Primary Care Provider VIOLETA LOONEY Consulting Unavailable [facility] [place] Primary Care Unavailable VALENCIA Rich, DR MARCUS Attending Unavailable VALENCIA Rich, DR MARUCS Admitting Unavailable AV ANTHONY JR Primary Care [...] Medication Allergies] Propensity to adverse reactions (disorder) [facility] Repository Medications Current Medications Medication Drug Class(es) [...] Onset: 3 Episodic Other aftercare (1 source) [facility] (current) use of aspirin; Translations: [[facility]ING [employer]NER CURRENT USE OF ASPIRIN] Onset: 3 Episodic Other aftercare (1 source) Other [facility] intermediary (current) drug therapy; Translations: [OTH [facility] CURRENT DRUG THERAPY] Onset: 3 Episodic Other aftercare (1 source) [facility] (current) use of antithrombotics/antipl atelets; Translations: [[facility]ING [facility] ANTITHROMBOT/ANTIPLATL ETS] Onset: 3 Episodic Other and [...] DEPEND] Onset: 3 Episodic Unclassified (1 source) [facility] INJECT NONINSULN ANTIDIAB; Translations: [[facility] INJECT NONINSULN [...] Cologuard test Tubular adenoma of colon Normal [facility] Ambulatory Visit Summary SERGIO ROJAS :1950 Visit [...] cancer screening using Cologuard test Normal [facility] Gen Surg Phone Visit- Telehe marbella 10-13-2022 [...] (COVID-19) mRNA-1273 vaccine 04/24/2020 Recorded Normal [facility] Comment on above: Result Comment: Elec tronically Signed By: SACHIN REGAN, Sergio Seymour\Date and Time Signed: 10/13/22 14:55 EDT Reminderson 10-13-2022 Reminders - From: Aparna Mcgee LPN To: N - Clinical; Sent: 10/13/2022 14:52:17 EDT Show up: 08/24/2027 07:00:00 EDT Subject: colonoscopy recall Due Date/Time: 09/23/2027 07:00:00 EDT Reminder/Recall Patient due for surveillance colonoscopy 09/23/2027. Normal [facility] Pathology Noteon 09-28-2022 Pathology Note [id number]#1.00C D:127 Normal [facility] Outside Colonoscopyon 2022 Outside Colonoscopy [id number]#1.00C D:127 Normal [facility] Lab Reportson 09-22-2022 Lab Reports [id number]#1.00C D:127 [facility] Pre-Certification Formon Pre-Certification Form [id number] :127 [facility] Consent for Procedure/Surger yon 08-18-2022 Consent for Procedure/Surgery [id number]#1.00C D:127 [facility] Ambulatory Visit Summaryon 0 08-17-2022 Ambulatory [...] colorectal cancer screening using Cologuard test Normal [facility] Physician Referralon 023 Physician Referral [id number]#1.00C D:127 Normal [facility] Basic Metabolic Panelon 09-28 Calcium mass conc 8.1 mg/dL Low 8.4-10.2 [facility] Comment on above: Performed By: #### C BCWOD, PT, PTT, EDCTNI, CHEM8, LIPASE, CMETADD ####Unless otherwise noted, all testing performed by [address] [phone]: [id number] Director: Christ Farris M.D. Chloride molar conc 109 mmol/L High 98-108 [facility] Comment on above: Performed By: #### C BCWOD, PT, PTT, EDCTNI, CHEM8, LIPASE, CMETADD ####Unless otherwise noted, all testing performed by [address] [phone]: [id number] Director: Christ Farris M.D. CO2 molar conc 25 mmol/L Normal 21-32 [facility] Comment on above: Performed By: #### C BCWOD, PT, PTT, EDCTNI, CHEM8, LIPASE, CMETADD ####Unless otherwise noted, all testing performed by [address] [phone]: [id number] Director: Christ Farris M.D. Creatinine mass conc 0.81 mg/dL Normal 0.80-1.30 [facility] Comment on above: Performed By: #### C BCWOD, PT, PTT, EDCTNI, CHEM8, LIPASE, CMETADD ####Unless otherwise noted, all testing performed by [address] [phone]: [id number] Director: Christ Farris M.D. GFR/1.73 sq M predicted among blacks MDRD vol rate/area (S/P/Bld) mL/min/{1.73_m2} Normal [facility] Comment on above: Result Comment: Afri can Iraqi GFR Calc Performed By: #### C BCWOD, PT, PTT, EDCTNI, CHEM8, LIPASE, CMETADD ####Unless otherwise noted, all testing performed by [address] [phone]: [id number] Director: Christ Farris M.D. GFR/1.73 sq M predicted among non-blacks MDRD vol rate/area (S/P/Bld) mL/min/{1.73_m2} Normal [facility] Comment on above: Result Comment: Non- [...] ####Unless otherwise noted, all testing performed by [address] [phone]: [id number] Director: Christ Farris M.D. Glucose mass conc 137 mg/dL High 70-99 [facility] Comment on above: Result Comment: This test result might be falsely depressed or falsely elevated onsamples drawn from patients taking Sulfasalazine and Sulfapyridine.Venipuncture should occur prior to taking either of these drugs. Performed By: #### C BCWOD, PT, PTT, EDCTNI, CHEM8, LIPASE, CMETADD ####Unless otherwise noted, all testing performed by [address] [phone]: [id number] Director: Christ Farris M.D. Potassium molar conc 4.1 mmol/L Normal 3.5-5.1 [facility] Comment on above: Performed By: #### C BCWOD, PT, PTT, EDCTNI, CHEM8, LIPASE, CMETADD ####Unless otherwise noted, all testing performed by [address] [phone]: [id number] Director: Christ Farris M.D. Sodium molar conc 140 mmol/L Normal 135-145 [facility] Comment on above: Performed By: #### C BCWOD, PT, PTT, EDCTNI, CHEM8, LIPASE, CMETADD ####Unless otherwise noted, all testing performed by [address] [phone]: [id number] Director: Christ Farris M.D. Urea nitrogen mass conc 14 mg/dL Normal 8-25 [facility] Comment on above: Performed By: #### C BCWOD, PT, PTT, EDCTNI, CHEM8, LIPASE, CMETADD ####Unless otherwise noted, all testing performed by [address] [phone]: [id number] Director: Christ Farris M.D. CBC with Diffon 10-10-2017 Basophils Auto #/vol (Bld) 0.0 K/mcL Normal 0-0.2 [facility] Comment on above: Performed By: #### C BCWOD, PT, PTT, EDCTNI, CHEM8, LIPASE, CMETADD ####Unless otherwise noted, all testing performed by [address] [phone]: [id number] Director: Christ Farris M.D. Basophils/100 WBC Auto (Bld) 0.4 % Normal [facility] Comment on above: Performed By: #### C BCWOD, PT, PTT, EDCTNI, CHEM8, LIPASE, CMETADD ####Unless otherwise noted, all testing performed by [address] [phone]: [id number] Director: Christ Farris M.D. Eosinophils Auto #/vol (Bld) 0.1 K/mcL Normal 0-0.5 [facility] Comment on above: Performed By: #### C BCWOD, PT, PTT, EDCTNI, CHEM8, LIPASE, CMETADD ####Unless otherwise noted, all testing performed by [address] [phone]: [id number] Director: Christ Farris M.D. Eosinophils/100 WBC Auto (Bld) 0.8 % Normal [facility] Comment on above: Performed By: #### C BCWOD, PT, PTT, EDCTNI, CHEM8, LIPASE, CMETADD ####Unless otherwise noted, all testing performed by [address] [phone]: [id number] Director: Christ Farris M.D. Erythrocyte distribution width Auto Ratio (RBC) 15.2 % High 10-14.3 [facility] Comment on above: Performed By: #### C BCWOD, PT, PTT, EDCTNI, CHEM8, LIPASE, CMETADD ####Unless otherwise noted, all testing performed by [address] [phone]: [id number] Director: Christ Farris M.D. Hematocrit Auto Volume Fraction (Bld) 37.9 % Normal 37.9-49.2 [facility] Comment on above: Performed By: #### C BCWOD, PT, PTT, EDCTNI, CHEM8, LIPASE, CMETADD ####Unless otherwise noted, all testing performed by [address] [phone]: [id number] Director: Christ Farris M.D. Hemoglobin mass conc (Bld) 12.7 g/dL Low 12.9-16.9 [facility] Comment on above: Performed By: #### C BCWOD, PT, PTT, EDCTNI, CHEM8, LIPASE, CMETADD ####Unless otherwise noted, all testing performed by [place] [phone]: [id number] Director: Christ Farris M.D. Lymphocytes Auto #/vol (Bld) 1.6 K/mcL Normal 0.9-3.6 [facility] Comment on above: Performed By: #### C BCWOD, PT, PTT, EDCTNI, CHEM8, LIPASE, CMETADD ####Unless otherwise noted, all testing performed by [address] [phone]: [id number] Director: Christ Farris M.D. Lymphocytes/100 WBC Auto (Bld) 12.8 % Normal [facility] Comment on above: Performed By: #### C BCWOD, PT, PTT, EDCTNI, CHEM8, LIPASE, CMETADD ####Unless otherwise noted, all testing performed by [address] [phone]: [id number] Director: Christ Farris M.D. MCH Auto Entitic mass (RBC) 26.1 pg Low 27.7-34.6 [facility] Comment on above: Performed By: #### C BCWOD, PT, PTT, EDCTNI, CHEM8, LIPASE, CMETADD ####Unless otherwise noted, all testing performed by [address] [phone]: [id number] Director: Christ Farris M.D. MCHC Auto mass conc (RBC) 33.5 g/dL Normal 32.9-35.5 [facility] Comment on above: Performed By: #### C BCWOD, PT, PTT, EDCTNI, CHEM8, LIPASE, CMETADD ####Unless otherwise noted, all testing performed by [place] [phone]: [id number] Director: Christ Farris M.D. MCV Auto Entitic volume (RBC) 77.9 fL Low 82.8-99.3 [facility] Comment on above: Performed By: #### C BCWOD, PT, PTT, EDCTNI, CHEM8, LIPASE, CMETADD ####Unless otherwise noted, all testing performed by [address] [phone]: [id number] Director: Christ Farris M.D. Monocytes Auto #/vol (Bld) 1.1 K/mcL High 0.2-0.6 [facility] Comment on above: Performed By: #### C BCWOD, PT, PTT, EDCTNI, CHEM8, LIPASE, CMETADD ####Unless otherwise noted, all testing performed by [address] [phone]: [id number] Director: Christ Farris M.D. Monocytes/100 WBC Auto (Bld) 8.8 % Normal [facility] Comment on above: Performed By: #### C BCWOD, PT, PTT, EDCTNI, CHEM8, LIPASE, CMETADD ####Unless otherwise noted, all testing performed by [address] [phone]: [id number] Director: Christ Farris M.D. Neutrophils Auto #/vol (Bld) 9.6 K/mcL High 1.4-6.8 [facility] Comment on above: Performed By: #### C BCWOD, PT, PTT, EDCTNI, CHEM8, LIPASE, CMETADD ####Unless otherwise noted, all testing performed by [address] [phone]: [id number] Director: Christ Farris M.D. Platelet mean volume Auto Entitic volume (Bld) 8.1 fL Normal 6.6-10.8 [facility] Comment on above: Performed By: #### C BCWOD, PT, PTT, EDCTNI, CHEM8, LIPASE, CMETADD ####Unless otherwise noted, all testing performed by [address] [phone]: [id number] Director: Christ Farris M.D. Platelets Auto #/vol (Bld) 280 K/mcL Normal 139-354 [facility] Comment on above: Performed By: #### C BCWOD, PT, PTT, EDCTNI, CHEM8, LIPASE, CMETADD ####Unless otherwise noted, all testing performed by [address] [phone]: [id number] Director: Christ Farris M.D. RBC Auto #/vol (Bld) 4.87 M/mcL Normal 4.0-5.5 [facility] Comment on above: Performed By: #### C BCWOD, PT, PTT, EDCTNI, CHEM8, LIPASE, CMETADD ####Unless otherwise noted, all testing performed by [address] [phone]: [id number] Director: Christ Farris M.D. Segmented Neut % 77.2 % Normal [facility] Comment on above: Performed By: #### C BCWOD, PT, PTT, EDCTNI, CHEM8, LIPASE, CMETADD ####Unless otherwise noted, all testing performed by [address] [phone]: [id number] Director: Christ Farris M.D. WBC Auto #/vol (Bld) 12.4 K/mcL High 3.6-10.4 [facility] Comment on above: Performed By: #### C BCWOD, PT, PTT, EDCTNI, CHEM8, LIPASE, CMETADD ####Unless otherwise noted, all testing performed by [address] [phone]: [id number] Director: Christ Farris M.D. Cardiac Troponin-Ion 10-10-2 018 Troponin I.cardiac mass conc No Biomarker evidence of myocardial injury within the past 14 hours. Normal [facility] Comment on above: Performed By: #### C BCWOD, PT, PTT, EDCTNI, CHEM8, LIPASE, CMETADD ####Unless otherwise noted, all testing performed by [address] [phone]: [id number] Director: Christ Farris M.D. Troponin I.cardiac mass conc ng/mL Normal < 45.0 [facility] Comment on above: Result Comment: Elev [...] ####Unless otherwise noted, all testing performed by [address] [phone]: [id number] Director: Christ Farris M.D. Glucose, POCon 10-10-2017 Glucose mass conc 99 mg/dL Normal 80-115 [facility] Comment on above: Performed By: #### C BCWOD, PT, PTT, EDCTNI, CHEM8, LIPASE, CMETADD ####Unless otherwise noted, all testing performed by [address] [phone]: [id number] Director: Christ Farris M.D. Glucose mass conc 104 mg/dL Normal 80-115 [facility] Comment on above: Performed By: #### C BCWOD, PT, PTT, EDCTNI, CHEM8, LIPASE, CMETADD ####Unless otherwise noted, all testing performed by [address] [phone]: [id number] Director: Christ Farris M.D. Magnesiumon 10-10-2017 Magnesium mass conc 1.8 mg/dL Normal 1.6-2.4 [facility] Comment on above: Performed By: #### C BCWOD, PT, PTT, EDCTNI, CHEM8, LIPASE, CMETADD ####Unless otherwise noted, all testing performed by [address] [phone]: [id number] Director: Christ Farris M.D. Basic Metabolic Panelon 09-28 Calcium mass conc 8.5 mg/dL Normal 8.4-10.2 [facility] Comment on above: Performed By: #### C BCWOD, PT, PTT, EDCTNI, CHEM8, LIPASE, CMETADD ####Unless otherwise noted, all testing performed by [address] [phone]: [id number] Director: Christ Farris M.D. Chloride molar conc 105 mmol/L Normal 98-108 [facility] Comment on above: Performed By: #### C BCWOD, PT, PTT, EDCTNI, CHEM8, LIPASE, CMETADD ####Unless otherwise noted, all testing performed by [address] [phone]: [id number] Director: Christ Farris M.D. CO2 molar conc 27 mmol/L Normal 21-32 [facility] Comment on above: Performed By: #### C BCWOD, PT, PTT, EDCTNI, CHEM8, LIPASE, CMETADD ####Unless otherwise noted, all testing performed by [address] [phone]: [id number] Director: Christ Farris M.D. Creatinine mass conc 1.04 mg/dL Normal 0.80-1.30 [facility] Comment on above: Performed By: #### C BCWOD, PT, PTT, EDCTNI, CHEM8, LIPASE, CMETADD ####Unless otherwise noted, all testing performed by [address] [phone]: [id number] Director: Christ Farris M.D. GFR/1.73 sq M predicted among blacks MDRD vol rate/area (S/P/Bld) mL/min/{1.73_m2} Normal [facility] Comment on above: Result Comment: Afri can Iraqi GFR Calc Performed By: #### C BCWOD, PT, PTT, EDCTNI, CHEM8, LIPASE, CMETADD ####Unless otherwise noted, all testing performed by [address] [phone]: [id number] Director: Christ Farris M.D. GFR/1.73 sq M predicted among non-blacks MDRD vol rate/area (S/P/Bld) mL/min/{1.73_m2} Normal [facility] Comment on above: Result Comment: Non- [...] ####Unless otherwise noted, all testing performed by [address] [phone]: [id number] Director: Christ Farris M.D. Glucose mass conc 172 mg/dL High 70-99 [facility] Comment on above: Result Comment: This test result might be falsely depressed or falsely elevated onsamples drawn from patients taking Sulfasalazine and Sulfapyridine.Venipuncture should occur prior to taking either of these drugs. Performed By: #### C BCWOD, PT, PTT, EDCTNI, CHEM8, LIPASE, CMETADD ####Unless otherwise noted, all testing performed by [address] [phone]: [id number] Director: Christ Farris M.D. Potassium molar conc 3.8 mmol/L Normal 3.5-5.1 [facility] Comment on above: Performed By: #### C BCWOD, PT, PTT, EDCTNI, CHEM8, LIPASE, CMETADD ####Unless otherwise noted, all testing performed by [address] [phone]: [id number] Director: Christ Farris M.D. Sodium molar conc 140 mmol/L Normal 135-145 [facility] Comment on above: Performed By: #### C BCWOD, PT, PTT, EDCTNI, CHEM8, LIPASE, CMETADD ####Unless otherwise noted, all testing performed by [address] [phone]: [id number] Director: Christ Farris M.D. Urea nitrogen mass conc 11 mg/dL Normal 8-25 [facility] Comment on above: Performed By: #### C BCWOD, PT, PTT, EDCTNI, CHEM8, LIPASE, CMETADD ####Unless otherwise noted, all testing performed by [address] [phone]: [id number] Director: Christ Farris M.D. CBC w/o Diffon 10-09-2017 Erythrocyte distribution width Auto Ratio (RBC) 15.2 % High 10-14.3 [facility] Comment on above: Performed By: #### C BCWOD, PT, PTT, EDCTNI, CHEM8, LIPASE, CMETADD ####Unless otherwise noted, all testing performed by [address] [phone]: [id number] Director: Christ Farris M.D. Hematocrit Auto Volume Fraction (Bld) 42.6 % Normal 37.9-49.2 [facility] Comment on above: Performed By: #### C BCWOD, PT, PTT, EDCTNI, CHEM8, LIPASE, CMETADD ####Unless otherwise noted, all testing performed by [address] [phone]: [id number] Director: Christ Farris M.D. Hemoglobin mass conc (Bld) 14.1 g/dL Normal 12.9-16.9 [facility] Comment on above: Performed By: #### C BCWOD, PT, PTT, EDCTNI, CHEM8, LIPASE, CMETADD ####Unless otherwise noted, all testing performed by [address] [phone]: [id number] Director: Christ Farris M.D. MCH Auto Entitic mass (RBC) 25.8 pg Low 27.7-34.6 [facility] Comment on above: Performed By: #### C BCWOD, PT, PTT, EDCTNI, CHEM8, LIPASE, CMETADD ####Unless otherwise noted, all testing performed by [place] [phone]: [id number] Director: Christ Farris M.D. MCHC Auto mass conc (RBC) 33.1 g/dL Normal 32.9-35.5 [facility] Comment on above: Performed By: #### C BCWOD, PT, PTT, EDCTNI, CHEM8, LIPASE, CMETADD ####Unless otherwise noted, all testing performed by [place] [phone]: [id number] Director: Christ Farris M.D. MCV Auto Entitic volume (RBC) 77.9 fL Low 82.8-99.3 [facility] Comment on above: Performed By: #### C BCWOD, PT, PTT, EDCTNI, CHEM8, LIPASE, CMETADD ####Unless otherwise noted, all testing performed by [address] [phone]: [id number] Director: Christ Farris M.D. Platelet mean volume Auto Entitic volume (Bld) 7.7 fL Normal 6.6-10.8 [facility] Comment on above: Performed By: #### C BCWOD, PT, PTT, EDCTNI, CHEM8, LIPASE, CMETADD ####Unless otherwise noted, all testing performed by [address] [phone]: [id number] Director: Christ Farris M.D. Platelets Auto #/vol (Bld) 319 K/mcL Normal 139-354 [facility] Comment on above: Performed By: #### C BCWOD, PT, PTT, EDCTNI, CHEM8, LIPASE, CMETADD ####Unless otherwise noted, all testing performed by [address] [phone]: [id number] Director: Christ Farris M.D. RBC Auto #/vol (Bld) 5.48 M/mcL Normal 4.0-5.5 [facility] Comment on above: Performed By: #### C BCWOD, PT, PTT, EDCTNI, CHEM8, LIPASE, CMETADD ####Unless otherwise noted, all testing performed by [address] [phone]: [id number] Director: Christ Farris M.D. WBC Auto #/vol (Bld) 13.6 K/mcL High 3.6-10.4 [facility] Comment on above: Performed By: #### C BCWOD, PT, PTT, EDCTNI, CHEM8, LIPASE, CMETADD ####Unless otherwise noted, all testing performed by [address] [phone]: [id number] Director: Christ Farris M.D. CHEST (ONE VIEW ONLY)on 09-28 CHEST (ONE VIEW ONLY) Final ReportAccession No: [id number] Performed: Oct 09 2017 6:52PMExamination: CHEST (ONE VIEW ONLY)CHEST (ONE VIEW ONLY):HISTORY: Chest pain and shortness of breath.COMPARISON: None.FINDINGS: The cardiomediastinal silhouette appears normal. The lungs areclear.There is no pleural effusion or pneumothorax. There is a surgical plateandscrews in the cervical spine. Bones and soft tissues otherwise appearunremarkable.IMPR ESSION:No acute cardiopulmonary process.Interpreting Physician: MARLI BEE M.D.Trans: lwolfe : cc: Normal [facility] CMET Add-On Testson 10-10-19 18 Albumin mass conc 3.4 g/dL Normal 3.2-5.2 [facility] Comment on above: Performed By: #### C BCWOD, PT, PTT, EDCTNI, CHEM8, LIPASE, CMETADD ####Unless otherwise noted, all testing performed by [address] [phone]: [id number] Director: Christ Farris M.D. ALP enzyme act/vol 88 U/L Normal 40-150 [facility] Comment on above: Performed By: #### C BCWOD, PT, PTT, EDCTNI, CHEM8, LIPASE, CMETADD ####Unless otherwise noted, all testing performed by [address] [phone]: [id number] Director: Christ Farris M.D. ALT enzyme act/vol 26 U/L Normal 14-65 [facility] Comment on above: Result Comment: This test result might be falsely depressed or falsely elevated onsamples drawn from patients taking Sulfasalazine and Sulfapyridine.Venipuncture should occur prior to taking either of these drugs. Performed By: #### C BCWOD, PT, PTT, EDCTNI, CHEM8, LIPASE, CMETADD ####Unless otherwise noted, all testing performed by [address] [phone]: [id number] Director: Christ Farris M.D. AST enzyme act/vol 14 U/L Normal 0-45 [facility] Comment on above: Result Comment: This test result might be falsely depressed or falsely elevated onsamples drawn from patients taking Sulfasalazine and Sulfapyridine.Venipuncture should occur prior to taking either of these drugs. Performed By: #### C BCWOD, PT, PTT, EDCTNI, CHEM8, LIPASE, CMETADD ####Unless otherwise noted, all testing performed by [address] [phone]: [id number] Director: Christ Farris M.D. Bilirubin mass conc 0.4 mg/dL Normal 0.3-1.2 [facility] Comment on above: Performed By: #### C BCWOD, PT, PTT, EDCTNI, CHEM8, LIPASE, CMETADD ####Unless otherwise noted, all testing performed by [address] [phone]: [id number] Director: Christ Farris M.D. Protein mass conc 6.6 g/dL Normal 6.0-8.0 [facility] Comment on above: Performed By: #### C BCWOD, PT, PTT, EDCTNI, CHEM8, LIPASE, CMETADD ####Unless otherwise noted, all testing performed by [address] [phone]: [id number] Director: Christ Farris M.D. Cardiac Troponin-Ion 018 Troponin I.cardiac mass conc ng/mL Normal < 45.0 [facility] Comment on above: Result Comment: Elev [...] ####Unless otherwise noted, all testing performed by [address] [phone]: [id number] Director: Christ Farris M.D. Troponin I.cardiac mass conc No Biomarker evidence of myocardial injury within the past 14 hours. Normal [facility] Comment on above: Performed By: #### C TNI, LIPID ####Unless otherwise noted, all testing performed by [address] [address] [id number]: [id number] Director: Christ Farris M.D. ED Cardiac Troponin-Ion 09-28 Troponin I.cardiac mass conc ng/mL Normal < 45 [facility] Comment on above: Result Comment: Elev [...] ####Unless otherwise noted, all testing performed by [address] [id number]: [id number] Director: Christ Farris M.D. Lactic Acidon 10-09-2017 Lactate molar conc 1.8 mmol/L Normal 0.6-2.0 [facility] Comment on above: Performed By: #### L A ####Unless otherwise noted, all testing performed by [address] [id number]: [id number] Director: Christ Farris M.D. Lipaseon 10-09-2017 Lipase enzyme act/vol 160 U/L Normal 73-393 [facility] Comment on above: Performed By: #### C BCWOD, PT, PTT, EDCTNI, CHEM8, LIPASE, CMETADD ####Unless otherwise noted, all testing performed by [address] [id number]: [id number] Director: Christ Farris M.D. Lipid Panelon 10-09-2017 Cholesterol in HDL mass conc 43 mg/dL Normal 40-59 [facility] Comment on above: Performed By: #### C BCWOD, PT, PTT, EDCTNI, CHEM8, LIPASE, CMETADD ####Unless otherwise noted, all testing performed by [address] [phone]: [id number] Director: Christ Farris M.D. Cholesterol in LDL mass conc 64 mg/dL Normal 10-150 [facility] Comment on above: Performed By: #### C BCWOD, PT, PTT, EDCTNI, CHEM8, LIPASE, CMETADD ####Unless otherwise noted, all testing performed by [address] [id number]: [id number] Director: Christ Farris M.D. Cholesterol in VLDL mass conc 35 mg/dL Normal 5-40 [facility] Comment on above: Performed By: #### C BCWOD, PT, PTT, EDCTNI, CHEM8, LIPASE, CMETADD ####Unless otherwise noted, all testing performed by [address] [phone]: [id number] Director: Christ Farris M.D. Cholesterol mass conc 142 mg/dL Normal 100-199 [facility] Comment on above: Performed By: #### C BCWOD, PT, PTT, EDCTNI, CHEM8, LIPASE, CMETADD ####Unless otherwise noted, all testing performed by [address] [id number]: [id number] Director: Christ Farris M.D. Cholesterol.total/C holesterol in HDL mass ratio 3.3 {ratio} Normal 3.2-5.0 [facility] Comment on above: Result Comment: Male Coronary Heart Disease Risk Factor (CHDRF):Average risk= 5.01/2 Average risk= 3.42 times Average risk= 9.6 Performed By: #### C BCWOD, PT, PTT, EDCTNI, CHEM8, LIPASE, CMETADD ####Unless otherwise noted, all testing performed by [address] [phone]: [id number] Director: Christ Farris M.D. Triglyceride mass conc 174 mg/dL High 25-120 [facility] Comment on above: Performed By: #### C BCWOD, PT, PTT, EDCTNI, CHEM8, LIPASE, CMETADD ####Unless otherwise noted, all testing performed by [address] [phone]: [id number] Director: Christ Farris M.D. Partial Thromboplastin Timeo n 10-09-2017 aPTT Coag time (Bld) 24 s Normal 23.0-34.0 [facility] Comment on above: Result Comment: Juliette gorman therapeutic range for PTT is 68-104 sec. Performed By: #### C BCWOD, PT, PTT, EDCTNI, CHEM8, LIPASE, CMETADD ####Unless otherwise noted, all testing performed by [address] [id number]: [id number] Director: Christ Farris M.D. Protimeon 10-09-2017 INR Coag RelTime (PPP) 0.95 {INR} Normal [facility] Comment on above: Result Comment: The [employer] recommended therapeutic rangefor Warfarin (Coumadin) therapy goals:PROPHYLAXIS/TREATMENT of:INRVenous Thrombosis, Pulmonary Embolism2.0-3.0Prevention of VTE (Orthopedic Surgery)2.0-3.0Atrial Fibrillation2.0-3.0Myocardial Infarction2.0-3.0Mechanical Prosthetic Heart Valves (Aortic position)2.0-3.0Mechanical Prosthetic Heart Valves (Mitral Position)2.5-3.5American College of Chest Physicians evidence-based clinical practiceguidelines. CHEST. 2012 (9th ed) Performed By: #### C BCWOD, PT, PTT, EDCTNI, CHEM8, LIPASE, CMETADD ####Unless otherwise noted, all testing performed by [address] [id number]: [id number] Director: Christ Farris M.D. Prothrombin time (PT) Coag time (PPP) 12.4 s Normal 11.8-14.3 [facility] Comment on above: Performed By: #### C BCWOD, PT, PTT, EDCTNI, CHEM8, LIPASE, CMETADD ####Unless otherwise noted, all testing performed by [address] [phone]: [id number] Director: Christ Farris M.D. Vital Signs Date Time Vital Sign Value Performing Clinician Joe quinteros 08-17-2022 14:34-0400 Blood Pressure Location Sergio NILL [facility] [place] 08-17-2022 14:34-0400 Diastolic blood pressure 90 mm[Hg] Sergio NILL [facility] [place] 08-17-2022 14:34-0400 Heart rate 70 /min Sergio NILL [facility] [place] 08-17-2022 14:34-0400 Respiratory rate 16 /min Sergio NILL [facility] [place] 08-17-2022 14:34-0400 Systolic blood pressure 130 mm[Hg] Sergio NILL [facility] [place] Encounters Encounter Date Encounter Type Care Provider Facility Start: 03-01-2024 ambulatory [facility] Start: 01-30-2024 ambulatory [facility] Start: 01-02-2024 ambulatory [facility] Start: 12-06-2023 ambulatory [facility] Start: 10-13-2022 End: 10-14-2022 ambulatory Sergio R NILL Facility: [place] Start: 10-13-2022 End: 10-13-2022 Patient encounter procedure Sergio R NILL [facility] N[facility] [place] Start: 09-22-2022 End: 09-23-2022 ambulatory Sergio R NILL Facility:CD:[id number] Start: 08-17-2022 End: 08-18-2022 ambulatory Sergio R NILL Facility: [place] Start: 08-17-2022 End: 08-17-2022 Patient encounter procedure Sergio R NILL [facility] Nill[facility] [place] Start: 08-02-2022 ambulatory Sergio R NILL Facility : [place] Start: 05-31-2022 End: 05-31-2022 ambulatory VIOLETA LOONEY Facility: Start: 04-17-2020 End: 04-17-2020 Orders Only Linh Oseguera Work Phone: [facility] Start: 10-26-2017 Patient encounter ALYSSA MANCILLA [facility] Start: 10-18-2017 Patient encounter Kimberlee Schmidt ity:[place] Start: 10-09-2017 End: 10-10-2017 Patient encounter Trisha Starr [place] Facility:[place] Procedures Date Procedure Procedure Detail Performing Clinician [...] ) mRNA-1273 vaccine Sergio NILL [facility] [place] 12-28-2020 SARS-CoV-2 (COVID-19 ) mRNA-1273 vaccine Sergio NILL [facility] [place] 05-21-2020 SARS-CoV-2 (COVID-19 ) mRNA-1273 vaccine Sergio NILL [facility] [place] 04-24-2020 SARS-CoV-2 (COVID-19 ) mRNA-1273 vaccine Sergio NILL [facility] [place] Payers Date Payer Category Payer Private Health Insurance [id number] 2017 Medicare AETNA MANAGED VA DICARE AETNA MEDICARE PLAN (PPO) [id number] 2017-Present [id number] 2017 Private Health Insurance VAYolie [id number] 1959 Medicare [id number] 1950 Unknown [id number]. 593 1950 Unknown [id number] [id number]. 727 1950 Unknown [id number] [id number]. 727 1950 Unknown [id number] [id number]. 727 1950 Unknown [id number] [id number]. 727 1950 Unknown [id number] 2.16.840.1.641977.3.579.2. 1286 1950 Unknown [id number] 2.16.840.1.282695.3.579.2. 1286 1950 Unknown [id number] 2.16.840.1.938412.3.579.2. 1286 1950 Unknown [id number] [id number]. 1286 Social History Date Type Detail [facility] Start: 08-17-2022 Tobacco smoking status Ex-smoker (fi nding) [facility] [place] Tobacco smoking status Never [facility] [place] Sex Assigned At Male [facility] Functional Status Date Assessment Result Facility 08-17-2022 [...] Use:. Never Smokeless (more content not included)... [facility] Comment on above: Result Comment: Elec tronically Signed By: SACHIN REGAN, Sergio Persaud.eusebio\Date and Time Signed: 08/17/22 15:09 EDT Evaluation + Plan note Note Date & Type Note Facility Evaluation + Plan note No data available for this section [facility] Discharge instructions Note Date & Type Note Facility Hospital Discharge instructions No data available for this section [facility] [place] Progress note Note Date & Type Note Facility Progress note No data available for this section [facility] [place] Summary Purpose Family History No Family History [...] section and content) DATE CREATED AUTHOR 10/21/2017 [facility] DATE CREATED AUTHOR AUTHOR'S ORGANIZ ATION 10/29/2017 [facility] DATE CREATED AUTHOR AUTHOR'S ORGANIZ ATION 06/03/2022 [facility] DATE CREATED AUTHOR AUTHOR'S ORGANIZ ATION 10/14/2022 Addy Daigle [facility] DATE CREATED AUTHOR AUTHOR'S ORGANIZ ATION 03/08/2024 [facility] Patient Care team informatio n (unrecognized section and content) Personnel Name: AV ANTHONY JR, DO Address: Address: [address] [place] [phone] Personnel Name: AV ANTHONY JR, DO Address: Address: [address] [place] [phone] FOR RECORDS PERTAINING TO PATIENTS WHO ARE [...] BE BASED ON THE PRIMARY CLINICAL RECORDS. [employer] provides no warranty or guarantee of the accuracy or completeness of information in this document.
[2024-06-17 09:26] LABS: Acetone NEGATIVE (NEGATIVE)
[2024-06-17 09:48] LABS: ABG PCO2 27.2 mmHg (35.0-45.0); PO2 ABG 84.4 mmHg (80.0-100.0)
[2024-06-17 09:49] LABS: Allen Test POSITIVE (POSITIVE); Base Excess ABG -13.2 mmol/L (-2.0-2.0); HCO3 ABG 13.3 mmol/L (22.0-26.0); O2 Mode RA; Oxygen Saturation ABG 96.4 %; Puncture Site LR
[2024-06-17 09:51] LABS: pH ABG 7.298 (7.350-7.450)
[2024-06-17] MEDS: HEPARIN SODIUM (PORCINE) 5,000 UNIT/ML VIAL 5000 UNIT SUBQ ×2 (10:24→18:00)
[2024-06-17] MEDS: 0.9 % SODIUM CHLORIDE 1,000 ML 1000 ML IV (10:25)
[2024-06-17 11:20] LABS: C. Difficile PCR NEGATIVE
[2024-06-17] MEDS: SODIUM BICARBONATE 150 MEQ in SODIUM CHLORIDE 0.45 % 1,000 ML 125 MEQ IV (11:56)
[2024-06-17 15:26] LABS: Anion Gap 13.5; Calcium 8.3 mg/dL (8.5-10.1); Carbon Dioxide 21.5 mmol/L (21.0-32.0); Chloride 107 mmol/L (98-107); Estimated GFR (African America >60 (>=60 mL/min/1.73m^2); Estimated GFR (Non-African Ame 59 (>=60 mL/min/1.73m^2); Glucose 92 mg/dL (74-106); Sodium 139 mmol/L (136-145)
--- NOTE | 2024-06-17 16:20 | PC.NURSE ---
Dr Fuchs notified of lab results. Orders received for oral potassium replacement
[2024-06-17] MEDS: POTASSIUM CHLORIDE 10 MEQ ER TABLET 40 MEQ PO (18:01)
--- NOTE | 2024-06-17 18:38 | PM.HP ---
HPI H&P: HPI History of Present Illness Chief complaint: vomiting IHSAN DEHYDRATION Narrative: 74 y o male with Pmhx of CAD, HTN, HLD, T2 DM presented to ED with 3 day hx of intractable nausea, vomiting and diarrhea. He reports watery stools 10-12 times per day and that he has not been able to tolerate PO diet for 3 days. Denies fever, chills, sick contacts, eating anything unusual. He denies blood in vomit or stools. Patient reports mild generalized abdominal cramping pain and heart burn. Work up in ED revealed IHSAN and metabolic acidosis. Patient was admitted for IV hydration, inability to tolerate PO intake, intractable nausea and vomiting. At the time of my evaluation, patient was still feeling nauseous, and was complaining of heart burn. He was asking for something to drink. He did not have any other complaints to offer. Opioid HPI Opioid Management Most Recent Pain and Opioid Data: Last Pain Scale 8 06/17/24 07:03 06/17/24 Last Pain Assessment 06/17/24 19:00 Last ED Pain Assessment 06/17/24 07:03 Last ORT Total Score 0 06/17/24 08:56 06/17/24 Last ORT Risk Category Low Risk 06/17/24 08:56 06/17/24 Review of Systems ROS Status of ROS 10 or more systems reviewed and unremarkable except as noted in history and below [facility] Medical History (Updated 06/17/24 @ 20:10 by Shaikh Jef MD) Type 2 diabetes mellitus ?E11.9 - Type 2 diabetes mellitus without complications (ICD-10) HLD (hyperlipidemia) ?E78.5 - Hyperlipidemia, unspecified (ICD-10) Sleep apnea ?G47.30 - Sleep apnea, unspecified (ICD-10) Obesity ?E66.9 - Obesity, unspecified (ICD-10) Nonalcoholic fatty liver disease ?K76.0 - Fatty (change of) liver, not elsewhere classified (ICD-10) Insomnia ?G47.00 - Insomnia, unspecified (ICD-10) Colon polyp ?K63.5 - Polyp of colon (ICD-10) Coronary artery disease ?I25.10 - Atherosclerotic heart disease of [place] coronary artery without angina pectoris (ICD-10) Atrial fibrillation ?I48.91 - Unspecified atrial fibrillation (ICD-10) Surgical History (Updated 09/14/22 @ 13:14 by Nancy Payne) H/O transurethral resection of prostate ?Z98.890 - Other specified postprocedural states (ICD-10) ?Z90.79 - Acquired absence of other genital organ(s) (ICD-10) History of heart artery stent ?Z95.5 - Presence of coronary angioplasty implant and graft (ICD-10) H/O cervical spine surgery ?Z98.890 - Other specified postprocedural states (ICD-10) History of cholecystectomy ?Z90.49 - Acquired absence of other specified parts of digestive tract (ICD-10) H/O colonoscopy ?Z98.890 - Other specified postprocedural states (ICD-10) Family History (Updated 09/14/22 @ 13:15 by Nancy Payne) Brother Family history of cancer Father Family history of myocardial infarction Mother Dementia Social History (Updated 09/14/22 @ 13:16 by Nancy Payne) Within the past year, how often did you have a drink containing alcohol: never Score interpretation: A score less than 4 is consistent with normal alcohol consumption. Smoking status: Former smoker What tobacco products do you use: cigarettes Packs per day: 1 Years smoked: 30 Smoking pack-years: 30.00 Smoking quit date/years: >15 years ago Non-prescribed substance use: denies use Highest level of school completed/degree received: high school graduate Little interest or pleasure in doing things: not at all Feeling down, depressed, or hopeless: not at all Meds Home Medications and Allergies Home Medications ?Medication ?Instructions ?Recorded ?Confirmed ?Type clopidogrel 75 mg tablet (Plavix) 75 mg PO DAILY 09/14/22 06/17/24 History dulaglutide 4.5 mg/0.5 mL 4.5 mg subcut QWEEK 09/14/22 06/17/24 History subcutaneous pen injector (Trulicity) empagliflozin 25 mg tablet 25 mg PO DAILY 09/14/22 06/17/24 History (Jardiance) ezetimibe 10 mg tablet (Zetia) 5 mg PO DAILY 09/14/22 06/17/24 History famotidine 40 mg tablet 40 mg PO DAILY 09/14/22 06/17/24 History rosuvastatin 20 mg tablet 20 mg PO DAILY 09/14/22 06/17/24 History zolpidem 5 mg tablet (Ambien) 5 mg PO ONCE 09/14/22 06/17/24 History baclofen 10 mg tablet 10 mg PO .QHS 06/17/24 06/17/24 History lansoprazole 30 mg capsule,delayed 30 mg PO .QD 06/17/24 06/17/24 History release Allergies Allergy/AdvReac Type Severity Reaction Status Date / Time No Known Drug Allergies Allergy Verified 06/17/24 05:21 Exam Constitutional Vital Signs, click to edit/add: Last Vital Signs Temp 97.9 F 06/17/24 17:03 Pulse 82 06/17/24 17:03 Resp 16 06/17/24 17:03 BP 136/74 06/17/24 17:03 Pulse Ox 96 06/17/24 17:03 O2 Del Method Room Air 06/17/24 17:03 Documenting provider has reviewed patient's vital signs: yes Common normals: no apparent distress and oriented x3 General appearance: cooperative Eye Common normals: conjunctivae normal and no scleral icterus Conjunctiva: conjunctiva(e) normal Respiratory Common normals: normal respiratory effort and clear to auscultation bilaterally Effort & inspection: able to speak in complete sentences Auscultation: clear to auscultation bilaterally Cardio Common normals: regular rate, S1 normal heart sound and S2 normal heart sound Rate: regular rate Heart sounds: S1 normal and S2 normal GI Common normals: Normal to inspection, nondistended, normoactive bowel sounds present, soft to palpation, non-tender and no hepatosplenomegaly Palpation: soft and no hepatosplenomegaly Extremity Common normals: no clubbing, cyanosis or edema Neuro Common normals: oriented x3, moves all extremities and no focal motor deficits Psych Common normals: mental status grossly normal, denies hallucinations, denies homicidal ideation and denies suicidal ideation Results Labs Labs: Short CBC 06/17/24 Range/Units 05:24 WBC 8.2 (4.0-11.0) 10^3/uL Hgb 18.7 H (14.0-18.0) g/dL Hct 54.8 H (42.0-54.0) % Plt Count 257 (150-450) 10^3/uL BMP 06/17/24 06/17/24 05:24 15:02 Sodium 135 L 139 Potassium 3.5 3.0 L Chloride 101 107 Carbon Dioxide 14.9 L 21.5 BUN 29.0 H 24.0 H Creatinine 1.93 H 1.20 Glucose 156 H 92 Calcium 9.7 8.3 L Liver Function 06/17/24 Range/Units 05:24 Total Bilirubin 0.6 (0.2-1.0) mg/dL AST 43 H (15-37) U/L ALT 69 H (16-63) U/L Alkaline Phosphatase 93 (46-116) U/L Albumin 4.0 (3.4-5.0) g/dL ABG ABG results: 06/17/24 09:35 ABG pH 7.298 L* ABG pCO2 27.2 L ABG pO2 84.4 ABG HCO3 13.3 L ABG O2 Saturation 96.4 ABG Base Excess -13.2 L Assessment and Plan Assessment and Plan (1) Acute dehydration: Assessment and Plan: Likely due to persistent nausea, vomiting and diarrhea. One more L NS bolus and after that, patient will be started on sodium bicarb drip to help with metabolic acidosis. Supportive care with IV hydration, zofran as needed for nausea,vomiting. (2) IHSAN (acute kidney injury): Assessment and Plan: Normal renal function at baseline. Likely pre renal. Presented with Cr of 1.9. C.w IVF. Monitor UO, serum cr closely. (3) Metabolic acidosis: Assessment and Plan: Negative acetone, lactate. likely due to acute dehydration, IHSAN. Started on bicarb drip. If improvement noted on subsequent BMP,will switch to 0.45 NS. (4) Gastroenteritis: Assessment and Plan: Negative C diff. Negative for Infleunza, COVID. Likely viral GE, c/w supportive care. No need for abx. Abdomen soft, non tender. No need for Abdominal imaging. (5) Coronary artery disease: Assessment and Plan: Stable. No evidence of active cardiac ischemia. Monitor. Qualifiers: Coronary Disease-Associated Artery/Lesion type: [place] artery [place] vs. transplanted heart: [place] heart Associated angina: without angina Qualified Code(s): I25.10 - Atherosclerotic heart disease of [place] coronary artery without angina pectoris (6) Type 2 diabetes mellitus: Assessment and Plan: Hold oral hypoglycemics. C/w SSI Qualifiers: Diabetes mellitus terminal clerk insulin use: without terminal clerk use Diabetes mellitus complication status: without complication Qualified Code(s): E11.9 - Type 2 diabetes mellitus without complications (7) HLD (hyperlipidemia): Assessment and Plan: C/w statin Qualifiers: Hyperlipidemia type: unspecified Qualified Code(s): E78.5 - Hyperlipidemia, unspecified
[2024-06-17] MEDS: SODIUM CHLORIDE 0.45 % 1,000 ML 100 ML IV (20:38)
[2024-06-17] MEDS: LOPERAMIDE HCL 1 MG/7.5 ML LIQUID 2 MG PO (21:56)
[2024-06-17] MEDS: ZOLPIDEM TARTRATE 5 MG TABLET PO (21:56)
[2024-06-17] MEDS: BACLOFEN 10 MG TABLET PO (21:56)
[2024-06-17 22:04] LABS: Glucometer 90 mg/dL (74-106)
[2024-06-18] MEDS: HEPARIN SODIUM (PORCINE) 5,000 UNIT/ML VIAL 5000 UNIT SUBQ (01:31)
[2024-06-18 04:19] VITALS: BP 136/77; PULSE 81; TEMP 36.3; O2SAT 97
[2024-06-18] MEDS: LOPERAMIDE HCL 2 MG CAPSULE PO ×2 (04:39→07:30)
[2024-06-18 05:57] LABS: Basophils Percent Auto 0.2 % (0.2-2.0); Eosinophils Absolute Auto 0.2 10^3/uL (0.0-0.7); Eosinophils Percent Auto 2.7 % (0.9-7.0); Hematocrit 44.9 % (42.0-54.0); Hemoglobin 15.3 g/dL (14.0-18.0); Immature Granulocytes Abs Auto 0.03 10^3/uL (0.00-0.03); Immature Granulocytes Pct Auto 0.5 % (0.0-0.5); Lymphocytes Absolute Auto 0.9 10^3/uL (1.2-3.8); Mean Corpuscular HGB Conc 34.1 g/dL (29.9-35.2); Mean Corpuscular Hemoglobin 26.7 pg (25.9-34.0); Mean Corpuscular Volume 78.2 fL (80.0-94.0); Mean Platelet Volume 9.5 fL (9.5-13.5); Monocytes Absolute Auto 0.7 10^3/uL (0.3-0.8); Neutrophils Absolute Auto 4.8 10^3/uL (1.4-6.5); Neutrophils Percent Auto 72.6 % (43.0-75.0); Platelet Count 197 10^3/uL (150-450); Red Blood Count 5.74 10^6/uL (4.70-6.10); Red Cell Distribution Width 14.7 % (11.0-15.0); White Blood Count 6.6 10^3/uL (4.0-11.0)
[2024-06-18 06:16] LABS: Alanine Aminotransferase 42 U/L (16-63); Albumin Globulin Ratio 1.1; Albumin Level 3.1 g/dL (3.4-5.0); Alkaline Phosphatase 71 U/L (46-116); Anion Gap 15.3; Aspartate Amino Transferase 24 U/L (15-37); BUN Creatinine Ratio 15.9; Bilirubin Total 0.5 mg/dL (0.2-1.0); Calcium 8.7 mg/dL (8.5-10.1); Carbon Dioxide 19.8 mmol/L (21.0-32.0); Chloride 108 mmol/L (98-107); Estimated GFR (African America >60 (>=60 mL/min/1.73m^2); Estimated GFR (Non-African Ame >60 (>=60 mL/min/1.73m^2); Globulin 2.7 g/dL; Glucose 85 mg/dL (74-106); Potassium 3.1 mmol/L (3.5-5.1); Sodium 140 mmol/L (136-145); Total Protein 5.8 g/dL (6.4-8.2)
[2024-06-18] MEDS: SODIUM CHLORIDE 0.45 % 1,000 ML 100 ML IV (06:38)
[2024-06-18] MEDS: POTASSIUM CHLORIDE 10 MEQ ER TABLET 40 MEQ PO (08:15)
[2024-06-18] MEDS: PANTOPRAZOLE SODIUM 40 MG VIAL IV (08:15)
[2024-06-18] MEDS: CLOPIDOGREL BISULFATE 75 MG TABLET PO (08:15)
[2024-06-18] MEDS: EZETIMIBE 10 MG TABLET 5 MG PO (08:15)
--- NOTE | 2024-06-18 10:02 | CM.NOTE ---
Rounds made with Dr. Fuchs, pt will discharge to home and f/u with PCP. Pt denies nausea this am and able to hold breakfast down.
--- NOTE | 2024-06-18 10:35 | CM.NOTE ---
Medicare Outpatient Observation notice discussed with pt, pt verbalizes understanding and signs paper. Original given to pt and copy placed on pt's chart.
[2024-06-18 11:11] VITALS: O2SAT 97
--- NOTE | 2024-06-19 14:15 | CM.DCFOLLOWU ---
1st attempt 06/19/24, no answer
--- NOTE | 2024-06-20 13:00 | CM.DCFOLLOWU ---
Person spoke with:patient's How are you feeling? tired, but well. He is out mowing now and umpired softball last night How is your pain?none Did you understand your discharge instructions?yes Do you have any questions about your discharge instructions?no Were you given any prescriptions at discharge?yes Were you able to get your prescriptions filled?yes Do you understand how to take your medications as ordered?yes Do you have any questions about your follow up appointment and do you plan to keep your follow up appointment? no questions, will schedule apt once PCP opens back up Is there anything else that you would like to discuss?no Questions/Comments/Concerns/Other:none
== END 2024-06-18 11:40 | disposition home or self-care (01) ==
LOC: ER 08:18 → MS 08:55
PROVIDERS: Emergency Medicine; Admitting Provider Internal Medicine; Emergency Provider Internal Medicine; Visit Provider Internal Medicine
DX: E86.0 Dehydration (principal); N17.9 Acute kidney failure, unspecified; K52.9 Noninfective gastroenteritis and colitis, unspecified; R06.02 Shortness of breath; Z95.5 Presence of coronary angioplasty implant and graft; Z90.49 Acquired absence of other specified parts of digestive tract; Z87.891 Personal history of nicotine dependence; I25.10 Atherosclerotic heart disease of native coronary artery without angina pectoris; I10 Essential (primary) hypertension; E78.5 Hyperlipidemia, unspecified; E11.9 Type 2 diabetes mellitus without complications; Z79.85 Long-term (current) use of injectable non-insulin antidiabetic drugs; Z79.84 Long term (current) use of oral hypoglycemic drugs; R10.84 Generalized abdominal pain; R12 Heartburn; E87.20 Acidosis, unspecified
CPT/HCPCS: 36415; 36600; 74022; 80048; 80053; 81001; 82009; 82805; 82948; 83605; 83690; 84484; 85025; 85378; 87493; 87804; 87811; 93005; 94761; 96361; 96365; 96366; 96372; 96375; 99285; G0378; J1644; J2405